=== PATIENT | female | born 1960 | race Caucasian/White ===

== ENCOUNTER 2018-05-05 11:28 | Inpatient (IN) | payer BC, OTHER, SELFPAY ==
[~2018-05-05 11:28] MED LIST: ISOVUE-370 76%-LOCM 1 ML ONE
[2018-05-05 12:11] LABS: #Basophils 0.1 thou/uL (0.0-0.2); #Lymphocytes 1.9 thou/uL (1.20-3.40); #Neutrophils 10.7 thou/uL (1.40-6.50); %Basophils 0.6 % (0.0-1.0); %Eosinophils 0.1 % (0.0-10.0); %Lymphocytes 13.9 % (21.0-51.0); %Monocytes 7.3 % (0.0-10.0); %Neutrophils 78.1 % (42.0-75.0); Hemoglobin 13.1 g/dL (12.0-16.0); Mean Corpuscular HGB CONC 30.4 g/dL (32.0-36.0); Mean Corpuscular Hemoglobin 31.2 pg (27.0-31.0); Mean Platelet Volume 7.7 fL (7.4-10.4); Platelet Count 526 thou/uL (130-400); RBC Distribution Width 17.5 % (11.5-14.5); Red Blood Cell (RBC) Count 4.21 mill/uL (4.20-5.40); White Blood Cell (WBC) Count 13.7 thou/uL (4.8-10.8)
[2018-05-05 12:16] LABS: INR-International Normal Ratio 1.1; Prothrombin Time 13.9 SEC (12.0-14.7)
[2018-05-05 12:36] LABS: ALT (SGPT) Less than 7 U/L (8-55); AST (SGOT) 15 U/L (5-34); Albumin 3.2 g/dL (3.5-5.0); Alkaline Phosphatase 114 U/L (40-150); Anion Gap 10 mmol/L (10-20); BUN (Urea Nitrogen) 11 mg/dL (9.8-20.1); Bilirubin, Total 0.7 mg/dL (0.2-1.2); CK (CPK) 20 U/L (29-168); Calc. Creatinine Clearance 0 mL/min (70-130); Calcium 9.8 mg/dL (7.8-10.44); Carbon Dioxide 34 mmol/L (22-29); Chloride 95 mmol/L (98-107); Estimated GFR-MDRD 85; Globulin 4.2 g/dL (2.4-3.5); Glucose 87 mg/dL (70-105); Potassium 4.3 mmol/L (3.5-5.1); Protein, Total 7.4 g/dL (6.0-8.3); Sodium 135 mmol/L (136-145)
[2018-05-05] MEDS ORDERED: Aspirin Chewable 81 MG TAB ONE (12:47)
[2018-05-05 13:08] LABS: CKMB 1.3 ng/mL (0-6.6)
--- NOTE | 2018-05-05 13:08 | RAD ---
PORTABLE AP CHEST RADIOGRAPH: Date: 05-05-18 History: Dyspnea. Tachycardia. Comparison: 04-28-18 FINDINGS: There is opacification of approximately 2/3 of the left hemithorax related to large left pleural effu john and consolidation which was seen on CT exam on 05-03-18. Findings may be related to compressive a telectasis although pneumonia cannot be entirely excluded. There is blunting in the right lateral cos tophrenic angle suggesting a tiny right pleural effusion. There is atelectasis present at the right l manas base. The cardiac silhouette is mostly obscured and not well evaluated on this exam. The size of the left pleural effusion and parenchymal lung changes has mildly increased since study on 04-28-18. N o other interval change. IMPRESSION: 1. Large left pleural effusion and atelectasis; although, pneumonia cannot be entirely excluded. Ther e has been mild interval increase in the left pleural effusion from prior exam. 2. Small right pleural effusion and atelectasis. POS: [facility]
[2018-05-05] MEDS ORDERED: Cefepime 2 GM in Sodium Chloride 0.9% 100 ML IVPB SCH (13:15)
--- NOTE | 2018-05-05 13:43 | CT ---
CT ANGIO CHEST PERFORMED WITH INTRAVENOUS CONTRAST ENHANCEMENT WITH 3D RECONSTRUCTIONS: HISTORY: Shortness of breath. COMPARISON: A 05/03/2018 examination done at [facility]. FINDINGS: A small right pleural effusion is again identified. A very large left pleural effusion with compress sabina atelectasis of the left lower lobe is again demonstrated. No significant mediastinal or hilar ad enopathy is appreciated. The thoracic aorta is normal in caliber. There is good pulmonary artery opacification without evidence for a pulmonary embolus. Visualized liver parenchyma shows no focal findings. Right adrenal gland is normal. The left adrena l gland is partially visualized and shows no mass. IMPRESSION: 1. Very large left-sided pleural effusion with compressive atelectasis of the left lower lobe. 2. Mild right-sided pleural effusion. 3. No CT evidence for pulmonary embolus. POS: [facility]
[2018-05-05] MEDS ORDERED: Acetaminophen 325 MG TAB PO PRN (14:51)
[2018-05-05] MEDS ORDERED: Ondansetron ODT 4 MG TAB SL PRN (14:51)
[2018-05-05] MEDS ORDERED: Ondansetron PF 4 MG/2 ML Vial IVP PRN (14:51)
[2018-05-05 15:36] LABS: Critical Call Chem Troponin I DECREASED; Troponin I 0.423 ng/mL (< 0.028)
[2018-05-05 15:52] LABS: Body Fluid Source Pleural Fluid
[2018-05-05 15:53] LABS: BF Color Yellow; BF RBC Count - Manual 2050 /cumm; Clarity Hazy (Clear); RBC Background Count 0.006; Tube # EDTA; WBC/NonHematic-Auto 1746 /cumm
[2018-05-05 16:07] LABS: BF Segmented Neutrophils 21 %; Cell Count Non Hematic 31 %; Lymphocytes 48 %
[2018-05-05] MEDS ORDERED: Sodium Chloride 0.9% 1,000 ML IV SCH (16:45)
[2018-05-05] MEDS ORDERED: Ibuprofen 800 MG TAB PO PRN (16:46)
[2018-05-05] MEDS ORDERED: Diabetic Tussin 200 MG/10 ML UDCUP PO PRN (16:46)
[2018-05-05] MEDS ORDERED: Ondansetron ODT 4 MG TAB PO PRN (16:46)
[2018-05-05] MEDS ORDERED: Benzonatate 100 MG CAP PO PRN (16:46)
--- NOTE | 2018-05-05 17:27 | CON ---
DATE OF CONSULTATION: 05/05/2018 REASON FOR CONSULTATION: Shortness of breath and congestive heart failure. HISTORY OF PRESENT ILLNESS: Ms. Flynn is a 58-year-old woman with no previous history of underlying coronary artery disease, who recently presented with shortness of breath. She states this has been occurring over the last several weeks. No real significant chest pain, pressure noted. She states she has been seen and evaluated by Dr. Stevo Sadler. Chest x-ray and CT scan had been performed. She had a large left-sided pleural effusion, was subsequently admitted. From a CV standpoint, her past history is included with tobacco abuse, but with low amounts. No diabetes, hypertension, other associated symptoms. Hypothyroidism. ALLERGIES: NONE. HOME MEDICATIONS: Levothyroxine and iron. REVIEW OF SYSTEMS: Ten-point review of systems is reviewed and as above, otherwise negative. PHYSICAL EXAMINATION: GENERAL: Patient is a pleasant 58-year-old, who is in no acute distress. The patient appears their stated age. VITAL SIGNS: Blood pressure 105/70, pulse 80, respirations 20. NEUROLOGIC: The patient is alert and oriented x3 with no focal neurologic deficits. HEENT: Sclerae without icterus. Mouth has moist mucous membranes with normal pallor. NECK: No JVD. Carotid upstroke brisk. No bruits bilaterally. LUNGS: Decreased breath sounds and crackles noted bilaterally. BACK: No scoliosis or kyphosis. CARDIAC: Regular rate and rhythm with normal S1 and S2. No S3 or S4 noted. No significant rubs, murmurs, thrills, or gallops noted throughout the precordium. PMI is not displaced. There is no parasternal heave. ABDOMEN: Soft, nontender, nondistended. No peritoneal signs present. No hepatosplenomegaly. No abnormal striae. EXTREMITIES: 2+ femoral and 2+ dorsalis pedis pulses. No cyanosis, clubbing, or edema. SKIN: No gross abnormalities. PERTINENT LABORATORY DATA: Hemoglobin 13.1. Potassium 4.3. Peak troponin 0.423. Albumin 3.2. BNP of 2077. Bedside echo shows LVEF of 10% to 15%. LV appears dilated. The mid to distal anterior wall apex and distal inferior wall appear dyskinetic. Vegetation present on the aortic valve (LVOT) with moderate aortic insufficiency present. IMPRESSION: 1. Shortness of breath. 2. Acute systolic heart failure, new finding. 3. Vegetation, old versus new. 4. Tobacco abuse. RECOMMENDATIONS: From a CV standpoint, I would recommend Lasix therapy. Her new CHF is felt to be a new finding. Blood culture have been drawn. Discussed case with Dr. Fortunato Aceves. We will cover with vancomycin for now. Once her blood pressure is stable, would consider low-dose beta-omega therapy. We will also discuss proceeding with coronary angiography once she is stabilized. The patient does admit to having intermittent fevers and chills, but actually septic and her clinical picture is out of proportion for endocarditis, but certainly cannot be ruled out. Unless she has embolized to her coronaries, she likely has 2 separate issues. I will continue to follow with you. Job ID: [id number]
[2018-05-05 19:07] LABS: Critical Call Chem Troponin I DECREASED; Troponin I 0.376 ng/mL (< 0.028)
--- NOTE | 2018-05-05 20:33 | HP ---
PRIMARY CARE PROVIDER: Stevo Sadler MD CHIEF COMPLAINT: Shortness of breath and fatigue. HISTORY OF PRESENT ILLNESS: This is a 58-year-old female, who presents to [facility] Emergency Department complaining of persistent and worsening shortness of breath over the last 3 months. 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 The patient underwent evaluation by her primary care provider with recent chest imaging including CT imaging of the chest showing large left-sided pleural effusion. The patient denies any known chronic lung infections, but does admit to smoking for up to 20 years. The patient denied any recent travel history, family members with similar symptoms, blood in her sputum, weight loss, fatigue, chest pain, or unilateral weakness. The patient states that her primary care provider and business resiliency manager were concerned for worsening symptoms and a large left pleural effusion. Recommending admission to the hospital. In the emergency room, the patient underwent general evaluation and was noted with hypoxemia with O2 saturations in the 70% range on room air. The patient received oxygen supplementation, transitioning to BiPAP noninvasive mechanical ventilation as well as IV cefepime and vancomycin after concern for acute infectious process. The patient also received intravenous normal saline, aspirin 324 mg, and was referred to the Critical Care Unit for evaluation. PAST MEDICAL HISTORY: 1. Tobacco abuse. 2. Hypothyroidism. 3. Left lower extremity DVT, treated with Xarelto x1 year. PAST SURGICAL HISTORY: Status post left hip surgery. CURRENT MEDICATIONS: 1. Levothyroxine 112 mcg p.o. daily. 2. Iron 325 mg p.o. daily. ALLERGIES: NO KNOWN DRUG ALLERGIES. FAMILY HISTORY: No inheritable disease per the patient's report. SOCIAL HISTORY: The patient is , residing in the [place], [place] area. She smokes up to a pack of cigarettes daily. Occasional alcohol use. No illicit drug use. REVIEW OF SYSTEMS: CONSTITUTIONAL: Negative for weight loss or gain, ability to conduct usual activities. SKIN: Negative for rash, itching. EYES: Negative for double vision, pain. ENT/MOUTH: Negative for nose bleeding, neck stiffness, pain, tenderness. CARDIOVASCULAR: Negative for palpitations, dyspnea on exertion, orthopnea. RESPIRATORY: Negative for shortness of breath, wheezing, cough, hemoptysis, fever or night sweats. GASTROINTESTINAL: Negative for poor appetite, abdominal pain, heartburn, nausea, vomiting, constipation, or diarrhea. GENITOURINARY: Negative for urgency, frequency, dysuria, nocturia. MUSCULOSKELETAL: Negative for pain, swelling. NEUROLOGIC/PSYCHIATRIC: Negative for anxiety, depression. ALLERGY/IMMUNOLOGIC: Negative for skin rash, bleeding tendency. Otherwise, negative except as stated per HPI. PHYSICAL EXAMINATION: VITAL SIGNS: Currently; blood pressure 96/72, pulse 92, respiratory rate 20, temperature 98.7 degrees Fahrenheit, and O2 saturation of 97% on 3 L per minute by nasal cannula. GENERAL APPEARANCE: This is a 58-year-old female, alert and oriented x3, pleasant, conversant, in no acute distress. HEENT: Pupils are equal, round, reactive to light and accommodation. Extraocular muscles are intact. No scleral icterus. No conjunctival injection. Nares are patent. OP is clear. Teeth in good repair. NECK: Supple. No cervical adenopathy. No thyromegaly. No carotid bruits. No JVD appreciated. Cervical spine with full active and passive range of motion. No meningeal signs appreciated. CHEST: Diminished breath sounds in the left hemithorax and right basilar region. CARDIOVASCULAR: S1 and S2 without noted murmur, rub, or gallop. ABDOMEN: Rounded, soft, nontender, and nondistended. Bowel sounds are positive in all 4 quadrants. There is no hepatosplenomegaly. No abdominal bruits. No rebound or guarding appreciated. EXTREMITIES: Warm and dry with fair turgor. No clubbing, cyanosis, or asymmetric edema appreciated. Pulses are palpable distally at the dorsalis pedis, posterior tibial, and popliteal arteries bilaterally. Capillary refill is less than 2 seconds. NEUROLOGIC: Cranial nerves 2 through 12 are grossly intact. No focal or lateralizing signs appreciated. PERTINENT LAB AND X-RAY FINDINGS: Sodium 135, potassium 4.3, chloride 95, CO2 of 34, BUN 11, creatinine 0.70, glucose 87, and calcium 9.8. LFTs within normal limits. Total CK of 20. Troponin-I ranged between 0.423 to 0.45. BNP 2078. Albumin 3.2. CBC showed a white blood cell count of 13.7, hemoglobin 13, hematocrit 43, MCV 103, and platelet count 526 with 78% neutrophils. PT 13.9, INR 1.1, and PTT 35.0. Portable chest x-ray dated 05/05/2018, showed large left pleural effusion with associated atelectasis. Small right pleural effusion noted. CT angiogram of the chest dated 05/05/2018, showed no evidence for pulmonary embolus. Large left-sided pleural effusion with atelectasis of the left lower lobe. Mild right-sided pleural effusion. EKG dated 05/05/2018, by my interpretation shows sinus tachycardia with low-voltage tracing. Heart rates in the 130s. Large R-wave deflection noted in leads V2 and V3 with attenuation in leads V4 through V6. Normal axis. No acute ST-T wave changes noted. ASSESSMENT AND PLAN: 1. Acute hypoxic respiratory failure, suspect secondary to large left-sided pleural effusion of unclear etiology. Initially managed with oxygen supplementation including BiPAP noninvasive mechanical ventilation, now transitioned to oxygen by nasal cannula. We will continue general pulmonary supportive management. See #2 below. 2. Left pleural effusion with atelectasis. The patient will be monitored by the Pulmonology Service. Status post thoracentesis with 750 mL removed. Final pathology and evaluation pending on the pleuritic fluid. Questionable cardiac etiology versus infectious versus neoplastic. Start Lasix 20 mg IV b.i.d. 3. Pneumonia, bacterial, suspected. We will continue cefepime 2 g IV q.12 hours with additional vancomycin 1 g IV b.i.d. Continue oxygen supplementation and general supportive management. 4. Elevated troponin-I, suspect demand ischemia in the context of large left pleural effusion and sinus tachycardia at the time of presentation. 2D transthoracic echocardiogram performed and pending. Cardiology consultation for further evaluation. Continue aspirin 81 mg daily. 5. Congestive heart failure. Question of cardiac etiology for the patient's large left pleural effusion. 2D transthoracic echocardiogram performed with final results pending. Continue Lasix 20 mg IV b.i.d. 6. Tobacco abuse. We will offer smoking cessation resources prior to discharge. 7. Prophylaxis. SCDs while in bed. Pepcid 20 mg p.o. b.i.d. 8. Code status is full. Surrogate medical decision maker is the patient's spouse. Job ID: [id number]
--- NOTE | 2018-05-05 20:39 | PRG ---
DATE OF SERVICE: 05/05/2018 Ms. Flynn is evaluated an hour after thoracentesis. She is doing much better. She wanted to sleep on BiPAP she thought tonight, so I have recommended that. Echocardiogram showed an ejection fraction close to 15%. She has an aortic vegetation, but it is unclear whether this is old or new. Cultures are pending and were drawn in the emergency room. I called the lab to confirm this. Obviously, endocarditis is though rule out diagnosis at this moment. Critical care time is 35 minutes independent of the procedures performed. Job ID: [id number] MTDD
[2018-05-05] MEDS: Famotidine 20 MG TAB PO SCH (21:07)
--- NOTE | 2018-05-05 21:10 | PRG ---
DATE OF SERVICE: 05/05/2018 SUBJECTIVE: Ms. Flynn is a pleasant 58-year-old female, who was referred to our office and referred to the emergency department because of fairly extreme dyspnea in the office. I was consulted because of this. PAST MEDICAL HISTORY: Remarkable for hypothyroidism, on thyroid replacement. She has no heart history. She was referred to our office because of a large left effusion. SOCIAL HISTORY: She has been a smoker, but not a heavy smoker. She is not a daily drinker. She did not use drugs. ALLERGIES: SHE HAS NO DRUG ALLERGIES. FAMILY HISTORY: Non contributory. MEDICATIONS: Prior to admission, she is on Synthroid. REVIEW OF SYSTEMS: 10 point review of systems completed, otherwise unremarkable. PHYSICAL EXAMINATION: GENERAL: Ms. Flynn is a pleasant 58-year-old female VITAL SIGNS: She is afebrile. Heart rates 94, oximetry was 90% on a BiPAP when I saw her. She was tachypneic with a rate in the 30s. HEAD: Unremarkable. HEENT: Pupils react. NECK: Unremarkable. She had no cervical lymphadenopathy. She had absent breath sounds residential up on the left. HEART: Regular rhythm. S1 and S2 normal. ABDOMEN: Soft and nontender. EXTREMITIES: Without clubbing, cyanosis, or edema. DIAGNOSTIC DATA: Impression, massive left-sided effusion with interstitial edema on chest radiograph. LABORATORY DATA: Labs remarkable for white count 13.7, hemoglobin 13, MCV of 103, platelets 526. Electrolytes; sodium 135, potassium 4.3, chloride 95, bicarb 34 , BUN 11, and creatinine 0.7. B-natriuretic peptide is 2077. IMPRESSION: Cardiogenic pulmonary edema. Recommended thoracentesis for symptomatic relief. She understand the risks of bleeding, infection, lung collapse, and signed the consent forms. We will make further recommendations after fluid results are back. Critical care time is 35 minutes, independent of procedures performed. Job ID: [id number] MTDD
[2018-05-06] MEDS: Vancomycin HCl 1 GM in Premix Bag 1 BAG IVPB SCH ×2 (00:56→13:01)
[2018-05-06] MEDS: Cefepime 2 GM in Sodium Chloride 0.9% 100 ML IVPB SCH ×2 (01:58→14:10)
--- NOTE | 2018-05-06 03:08 | OP ---
DATE OF PROCEDURE: 05/05/2018 PROCEDURE PERFORMED: Thoracentesis. DESCRIPTION OF PROCEDURE: Left posterior hemithorax was cleansed after consent was obtained. Chlorhexidine was used. She had absent breath sounds at lower half of her left chest. 10 mL of 1% lidocaine was used to anesthetize the skin and the pleura. An 8-[place] catheter was inserted in the pleural space without difficulty. 750 mL of dark yellow pleural fluid was evacuated from the pleural space without difficulty. No air was aspirated. The catheter was withdrawn. Sterile dressing was applied. She tolerated the procedure well. Fluid was sent for the appropriate studies. Preliminary studies showed white count of 1746, red count 2050, and 21% neutrophils. Protein was 3 g, LDH was 202, glucose 98, amylase 106. For some reason, the pleural fluid pH that was ordered and has not been reported. Job ID: [id number]
[2018-05-06 06:03] LABS: Hypochromia SLIGHT = 6-15 cells (100X) (0-5/hpf); Lymphocytes 14 % (21-51); MDiff Complete? YES; Macrocytosis SLIGHT = 6-15 cells (100X) (0-5/hpf); Mean Corpuscular HGB CONC 30.2 g/dL (32.0-36.0); Mean Corpuscular Hemoglobin 31.2 pg (27.0-31.0); Mean Platelet Volume 7.6 fL (7.4-10.4); Monocytes 3 % (0-10); Neutrophil 83 % (42-75); Platelet Count 445 thou/uL (130-400); Platelet Morphology Comment Appears Adequate; RBC Distribution Width 17.4 % (11.5-14.5); Red Blood Cell (RBC) Count 3.54 mill/uL (4.20-5.40); White Blood Cell (WBC) Count 11.7 thou/uL (4.8-10.8)
[2018-05-06 06:26] LABS: Anion Gap 15 mmol/L (10-20); BUN (Urea Nitrogen) 9 mg/dL (9.8-20.1); Calc. Creatinine Clearance 138 mL/min (70-130); Calcium 8.8 mg/dL (7.8-10.44); Carbon Dioxide 25 mmol/L (22-29); Chloride 101 mmol/L (98-107); Estimated GFR-MDRD Greater than 90; Glucose 79 mg/dL (70-105); Magnesium 1.3 mg/dL (1.6-2.6); Potassium 4.6 mmol/L (3.5-5.1); Sodium 136 mmol/L (136-145)
[2018-05-06] MEDS ORDERED: Magnesium Sulfate 4 GM in Sodium Chloride 0.9% 250 ML 250 ML IVPB SCH (09:30)
[2018-05-06] MEDS: Aspirin 81 mg Enteric Coated Tablet PO SCH (10:00)
[2018-05-06] MEDS: Famotidine 20 MG TAB PO SCH ×2 (10:00→20:31)
[2018-05-06] MEDS: Enoxaparin Sodium 40 MG/0.4 ML SYRINGE SC SCH (10:00)
[2018-05-06] MEDS ORDERED: Furosemide 20 MG/2 ML VIAL SLOW IVP SCH (12:00)
--- NOTE | 2018-05-06 12:37 | PRG ---
DATE OF SERVICE: 05/06/2018 SERVICE: Pulmonary Medicine. INTERVAL HISTORY: We discovered a lot in a very short period of time. Very clearly, the patient is having a heart failure event. It appears to be subacute. She also had a vegetation on the valve. All of these things are being explored. The patient indicates that she is breathing a little bit better. She did like using the BiPAP last night. She can only tolerate for about 2 to 3 hours before it started feeling uncomfortable for her and she had to take a break from it. Ultimately, removing in the right direction. More so, she is relieved to find out that we are getting some answers for why she has been feeling so bad for the last 3 months. PHYSICAL EXAMINATION: VITAL SIGNS: Afebrile. Pulse 121, blood pressure 100/78, respirations 19, saturation 97% on 3 L nasal cannula. GENERAL: The patient is awake and alert, in no apparent distress. LUNGS: Decent air entry. Dependent crackles are minimal. No prolonged expiratory phase or wheezing is appreciated. HEART: Normal rate, regular. ABDOMEN: Soft, nontender, nondistended. Bowel sounds are positive. MUSCULOSKELETAL: No cyanosis or clubbing. There is trace pitting in the bilateral lower extremities. NEUROLOGIC: Grossly nonfocal. LABORATORY DATA: WBC 11.7, hemoglobin 11.0, platelets 445,000. Neutrophil count is 83%. INR 1.1. Basic metabolic profile is otherwise unremarkable with creatinine is downtrending to 0.56. Magnesium 1.3, LDH 378. TSH 4.07. Body fluid is significant for a pleural LDH of 202, total protein 3.0. PH was 8.1, likely an artifact of a late analysis. Blood cultures x2, and body fluid cultures otherwise unremarkable. IMAGING DATA: Echocardiogram demonstrates 10% to 15% ejection fraction, distal inferior wall akinesis. Left atrium is moderately dilated with severe mitral regurgitation present. There is a vegetation on the left ventricular outflow tract of the aortic valve measuring 2.5 mm. There was [id number] aortic regurgitation noted. ASSESSMENT: 1. Acute systolic and valvular heart failure. 2. Mitral and aortic regurgitation. 3. Pleural effusion, status post thoracentesis, demonstrating a pseudo-exudate. 4. [id number] myocardial infarction. DISCUSSION AND PLAN: I will introduce 1 small dose of Lasix today. If she tolerates it, we will gently diurese her through time. I agree with Infectious Disease consultation. We will need to evaluate for typical, and culture negative forms of endocarditis. We will need to define her coronaries. If we can prove that she is not infected, the patient may require a valve replacement at some point in the future. At this point, she is stable enough to transition to the IMCU, but since she is going to require BiPAP at night, we will leave her more closely monitored and I am not ready to send her to the telemetry unit yet. Pulmonary/Critical Care will continue to follow along. Job ID: [id number]
--- NOTE | 2018-05-06 16:29 | CON ---
DATE OF CONSULTATION: 05/06/2018 REASON FOR CONSULTATION: Endocarditis. HISTORY OF PRESENT ILLNESS: A 58-year-old first admission to [facility], who has a history of chronic smoking, prior DVT treated for 1 year with Xarelto , who has been unwell for the past 3 months with dyspnea, intermittent low-grade fevers, and general malaise. She had initial chest x-ray, which showed effusion on the left side, which was confirmed by a CT scan done elsewhere. She was, therefore, recommended eventually to be admitted after multiple courses of oral antimicrobial therapy in the outpatient setting. O2 saturations were 70% on admission. She was eventually transitioned to BiPAP and admitted to the ICU with cefepime and vancomycin. Now, we have a positive finding in the echocardiogram suggestive of aortic valve endocarditis with significant aortic valve insufficiency. She is currently feeling better. She denies any headaches. No visual symptoms. Except for floaters here and there, the vision is sharp, though. No back pain. No neck pain. No sputum production. No abdominal pain or diarrhea. She is urinating in the bedside commode. She had a thoracentesis for diagnostic purpose. PAST MEDICAL HISTORY: Includes chronic smoking, hypothyroidism, and deep vein thrombosis. PAST SURGICAL HISTORY: Hip surgery. This was in 1992, the hip surgery, not clear what the nature of the surgery was. She also has hypothyroidism. SOCIAL HISTORY: Drinks occasionally. She smokes daily. ALLERGY HISTORY: Negative. CURRENT MEDICATIONS: 1. Ecotrin. 2. Cefepime. 3. Enoxaparin. 4. Pepcid. 5. Robitussin. 6. Motrin. 7. Zofran. 8. Vancomycin. PHYSICAL EXAMINATION: VITAL SIGNS: T-max 98.4, blood pressure 97/77, pulse 113, and O2 sats 99%. SKIN: Shows a peripheral IV access. She has no Bates catheter. HEENT: No lymphadenopathy. Ocular movements conjugate. Sclerae white. Pupils are equal. Conjunctivae normal. Oral cavity normal. Numerous teeth in place in fairly decent shape. NECK: Supple. No jugular venous distention. LUNGS: Bibasilar expiratory crackles. No wheezing. HEART: S1 and S2 with aortic insufficiency murmur right to these sternal border. This is quite faint. She has a systolic murmur as well, best heard at the base of the heart. No apex murmur noted. No S3. She does have an S4. ABDOMEN: Soft. Not distended or tender. No ascites. No bladder distention. No organomegaly. No joint inflammatory activity. EXTREMITIES: Trace edema, lower extremities. Pulses 1+ in dorsalis pedis. Moves extremities equally. No focal neurological findings. Cognitive function appears to be intact. LABORATORY DATA: White cell count 13.7 and now 11.7, platelets 526 and 445, 82% neutrophils, 14% lymphocytes. INR 1.1. Creatinine 0.7. Liver profile normal. Albumin 3.2, globulin 4.2. Lactate dehydrogenase 378. Pleural fluid with 1700 wbc's with 21% neutrophils, 48% lymphocytes. The path review lymphocytes and reactive mesothelial cells, but no malignancy. LDH was 202, total protein was 3.0, and the albumin was 3.2. The patient had a chest CT, which showed large left- sided pleural effusion with compressive atelectasis left lower lobe and mild right- sided pleural effusion with no CT evidence of pulmonary embolism. The fluid pH was 8.1 in the pleural fluid. ASSESSMENT: 1. Chronic smoking. 2. Large pleural effusion, status post thoracentesis, appears to be an exudative pleural effusion. 3. Vegetation in the aortic valve with aortic valve insufficiency. DISCUSSION: The patient has pending blood cultures and we will await for the results of those to see if she has definitive endocarditis diagnosis or possible diagnosis according to modified Doty criteria. If the blood cultures remain negative, then we will consider submitting Karius testing. In the meantime, continue cefepime and vancomycin. Usual bacterial causes of endocarditis including streptococci from oral cavity, Staphylococcus aureus, HACEK bacteria, Bartonella will be considered, fungal less likely. Depending on clinical course, the patient might need consultation with Thoracic Surgery for valve replacement. Job ID: [id number] [facility]
--- NOTE | 2018-05-06 19:27 | PRG ---
DATE OF SERVICE: 05/06/2018 SUBJECTIVE: Ms. Flynn is doing better from a respiratory standpoint. She is diuresed. She is off BiPAP. No current complaints. She states she is resting and breathing better. OBJECTIVE: VITAL SIGNS: Blood pressure 113/82, pulse 100 to 120, temperature afebrile. LUNGS: Crackles. Decreased breath sounds noted bilaterally. HEART: Regular rate and rhythm. Tachycardic. ABDOMEN: Soft, nontender, nondistended. EXTREMITIES: No edema. PERTINENT LABORATORY DATA: Hemoglobin 11. Creatinine 0.84. Peak troponin 0.4. IMPRESSION: 1. Acute systolic heart failure. 2. Endocarditis. 3. Tobacco abuse. 4. Chronic obstructive pulmonary disease. 5. Pleural effusion. RECOMMENDATIONS: I discussed with Ms. Flynn on proceeding with coronary angiography. I discussed the procedure in full detail with Ms. Flynn. The risks included but not limited to the following: , stroke, AR, need for emergency surgery, loss of limb, bleeding, and infection, as well as a reaction to the dye causing kidney failure and needing long-term dialysis. I also discussed the risks of PCI to include all of the above including coronary dissection and perforation in addition to acute stent thrombosis and restenosis. All questions answered. Given the above, the patient agreed to proceed with the above procedure. We will check in a.m. If blood pressure and heart rate are more stable, we will proceed in a.m., otherwise may need to wait until Thursday until things get stabilize. I would also like to await for final blood culture results. Job ID: [id number]
--- NOTE | 2018-05-06 21:43 | PDOC.PN ---
- Subjective Encounter Start Date: 05/06/18 Encounter Start Time: 09:15 Subjective: pt up in bed no complains - Objective Vital Signs & Weight: Vital Signs (12 hours) Temp 05/06/18 19:34 98.3 F 05/06/18 15:14 97.4 F L 05/06/18 14:00 98.5 F 05/06/18 13:00 97.5 F L 05/06/18 12:00 98.3 F 05/06/18 11:00 97.7 F 05/06/18 10:00 98.2 F Weight Weight 180 lb 12.465 oz Most Recent Monitor Data Heart Rate from ECG 104 NIBP 103/65 NIBP BP-Mean 77 Respiration from ECG 27 SpO2 95 I&O: 05/05/18 05/06/18 05/07/18 06:59 06:59 06:59 Intake Total 657 321 Output Total 1350 450 Balance -693 -129 Result Diagrams: 05/06/18 05:24 05/06/18 05:24 Phys Exam - Physical Examination Neck: no nodes, no JVD, supple, full ROM mild crackles to bases Cardiovascular: RRR, no significant murmur, no rub, gallop, irregular Musculoskeletal: no edema, pulses present, edema present Dx/Plan (1) Acute hypoxemic respiratory failure Code(s): J96.01 - ACUTE RESPIRATORY FAILURE WITH HYPOXIA Status: Acute (2) Pleural effusion Code(s): J90 - PLEURAL EFFUSION, NOT ELSEWHERE CLASSIFIED Status: Acute (3) Pleural effusion Code(s): J90 - PLEURAL EFFUSION, NOT ELSEWHERE CLASSIFIED Status: Acute (4) Endocarditis Code(s): I38 - ENDOCARDITIS, VALVE UNSPECIFIED Status: Acute (5) Sinus tachycardia Code(s): R00.0 - TACHYCARDIA, UNSPECIFIED Status: Acute (6) Systolic heart failure Code(s): I50.20 - UNSPECIFIED SYSTOLIC (CONGESTIVE) HEART FAILURE Status: Acute - Plan will continue abx for now -: ID consulted for endocarditis per echo finding -: s/p throacentesis, cytology pending, blood cx pending. * . Review of Systems - Review of Systems Cardiovascular: negative: chest pain, palpitations, orthopnea, paroxysmal nocturnal dyspnea, edema, light headedness, other Gastrointestinal: negative: Nausea, Vomiting, Abdominal Pain, Diarrhea, Constipation, Melena, Hematochezia, Other Genitourinary: negative: Dysuria, Frequency, Incontinence, Hematuria, Retention , Other - Medications/Allergies Allergies/Adverse Reactions: Allergies Allergy/AdvReac Type Severity Reaction Status Date / Time No Known Allergies Allergy Unverified 05/05/18 12:59 Medications: Current Medications Acetaminophen (Tylenol) 1,000 mg PO Q6H PRN PRN Reason: Mild Pain (1-3) Aspirin (Ecotrin) 81 mg PO DAILY [facility] Last Admin: 05/06/18 10:00 Dose: 81 mg Enoxaparin Sodium (Lovenox) 40 mg SC 0900 [facility] Last Admin: 05/06/18 10:00 Dose: 40 mg Famotidine (Pepcid) 20 mg PO BID [facility] Last Admin: 05/06/18 20:31 Dose: 20 mg Guaifenesin (Robitussin Sf) 200 mg PO Q4H PRN PRN Reason: Cough Vancomycin HCl 1 gm/ Device 200 mls @ 200 mls/hr IVPB 0100,1300 [facility] Last Admin: 05/06/18 13:01 Dose: 200 mls Sodium Chloride (Normal Saline 0.9%) 1,000 mls @ 0 mls/hr IV .Q0M [facility] Cefepime HCl 2 gm/ Sodium (Chloride) 100 mls @ 200 mls/hr IVPB 0200,1400 [facility] Last Admin: 05/06/18 14:10 Dose: 100 mls Ibuprofen (Motrin) 400 mg PO Q4H PRN PRN Reason: Fever > 101 Ondansetron HCl (Zofran Odt) 4 mg PO Q6H PRN PRN Reason: Nausea/Vomiting Ondansetron HCl (Zofran) 4 mg IVP Q6H PRN PRN Reason: Nausea/Vomiting
[2018-05-07 01:02] LABS: Vancomycin, Trough 14.7 ug/mL
[2018-05-07] MEDS: Vancomycin HCl 1 GM in Premix Bag 1 BAG IVPB SCH ×2 (01:36→13:32)
[2018-05-07] MEDS: Cefepime 2 GM in Sodium Chloride 0.9% 100 ML IVPB SCH ×2 (01:46→13:32)
[2018-05-07] MEDS ORDERED: Fentanyl 100 MCG/2 ML VIAL ONE (06:51)
[2018-05-07] MEDS ORDERED: Midazolam HCl 2 mg/2 ml Vial ONE (06:51)
[2018-05-07] MEDS: Famotidine 20 MG TAB PO SCH ×2 (09:12→20:54)
[2018-05-07] MEDS: Aspirin 81 mg Enteric Coated Tablet PO SCH (09:12)
[2018-05-07] MEDS: Enoxaparin Sodium 40 MG/0.4 ML SYRINGE SC SCH (09:12)
--- NOTE | 2018-05-07 12:28 | PDOC.PN ---
- Subjective Encounter Start Date: 05/07/18 Encounter Start Time: 10:15 -: old records requested/rev Patient seen and examined. No new complaints. No overnight events - Objective MAR Reviewed: Yes Vital Signs & Weight: Vital Signs (12 hours) Temp Pulse Resp Pulse Ox 05/07/18 11:10 98.3 F 05/07/18 07:34 97 05/07/18 07:33 103 H 17 96 05/07/18 07:08 98.6 F 05/07/18 04:09 98.6 F 05/07/18 00:27 30 H 98 Weight Weight 180 lb 12.465 oz Most Recent Monitor Data Heart Rate from ECG 111 NIBP 103/63 NIBP BP-Mean 76 Respiration from ECG 20 SpO2 97 I&O: 05/06/18 05/07/18 05/08/18 06:59 06:59 06:59 Intake Total 657 1221 Output Total 1350 550 Balance -693 671 Result Diagrams: 05/06/18 05:24 05/06/18 05:24 EKG Reviewed by me: Yes (tachycardia) Phys Exam - Physical Examination Constitutional: NAD HEENT: PERRLA, moist MMs, sclera anicteric Neck: no JVD, supple Respiratory: no wheezing, no rhonchi basal rales Cardiovascular: RRR, no rub SM at apex Gastrointestinal: soft, non-tender, no distention, positive bowel sounds Musculoskeletal: no edema, pulses present Neurological: non-focal, normal sensation Lymphatic: no nodes Psychiatric: normal affect, A&O x 3 Skin: no rash, normal turgor Dx/Plan (1) Acute hypoxemic respiratory failure Code(s): J96.01 - ACUTE RESPIRATORY FAILURE WITH HYPOXIA Status: Acute (2) Acute systolic ACC/AHA stage C congestive heart failure Code(s): I50.21 - ACUTE SYSTOLIC (CONGESTIVE) HEART FAILURE Status: Acute (3) Aortic valve vegetation Code(s): I33.0 - ACUTE AND SUBACUTE INFECTIVE ENDOCARDITIS Status: Acute (4) Demand ischemia of myocardium Code(s): I24.8 - OTHER FORMS OF ACUTE ISCHEMIC HEART DISEASE Status: Acute (5) Endocarditis Code(s): I38 - ENDOCARDITIS, VALVE UNSPECIFIED Status: Acute (6) Pleural effusion, left Code(s): J90 - PLEURAL EFFUSION, NOT ELSEWHERE CLASSIFIED Status: Acute (7) Severe mitral regurgitation Code(s): I34.0 - NONRHEUMATIC MITRAL (VALVE) INSUFFICIENCY Status: Acute (8) Macrocytic anemia Code(s): D53.9 - NUTRITIONAL ANEMIA, UNSPECIFIED Status: Chronic (9) Obesity (BMI 30-39.9) Code(s): E66.9 - OBESITY, UNSPECIFIED Status: Chronic (10) Tobacco abuse Code(s): Z72.0 - TOBACCO USE Status: Chronic - Plan cont current plan of care, continue antibiotics * continue empiric antibiotics as per dr serna * medication reviewed as below * symptomatic treatment * follow culture * continue diuresis * monitor in imcu * cardio, pulmonary, ID on case. Review of Systems - Review of Systems ENT: negative: Ear Pain, Ear Discharge, Nose Pain, Nose Discharge, Nose Congestion, Mouth Pain, Mouth Swelling, Throat Pain, Throat Swelling, Other Respiratory: Shortness of Breath, SOB with Excertion. negative: Cough, Dry, Hemoptysis, Pleuritic Pain, Sputum, Wheezing Cardiovascular: palpitations, orthopnea. negative: chest pain, paroxysmal nocturnal dyspnea, edema, light headedness, other Gastrointestinal: negative: Nausea, Vomiting, Abdominal Pain, Diarrhea, Constipation, Melena, Hematochezia, Other Genitourinary: negative: Dysuria, Frequency, Incontinence, Hematuria, Retention , Other Musculoskeletal: negative: Neck Pain, Shoulder Pain, Arm Pain, Back Pain, Hand Pain, Leg Pain, Foot Pain, Other - Medications/Allergies Allergies/Adverse Reactions: Allergies Allergy/AdvReac Type Severity Reaction Status Date / Time No Known Allergies Allergy Unverified 05/05/18 12:59 Medications: Current Medications Acetaminophen (Tylenol) 1,000 mg PO Q6H PRN PRN Reason: Mild Pain (1-3) Aspirin (Ecotrin) 81 mg PO DAILY [facility] Last Admin: 05/07/18 09:12 Dose: 81 mg Enoxaparin Sodium (Lovenox) 40 mg SC 0900 [facility] Last Admin: 05/07/18 09:12 Dose: 40 mg Famotidine (Pepcid) 20 mg PO BID [facility] Last Admin: 05/07/18 09:12 Dose: 20 mg Guaifenesin (Robitussin Sf) 200 mg PO Q4H PRN PRN Reason: Cough Vancomycin HCl 1 gm/ Device 200 mls @ 200 mls/hr IVPB 0100,1300 [facility] Last Admin: 05/07/18 01:36 Dose: 200 mls Sodium Chloride (Normal Saline 0.9%) 1,000 mls @ 0 mls/hr IV .Q0M [facility] Cefepime HCl 2 gm/ Sodium (Chloride) 100 mls @ 200 mls/hr IVPB 0200,1400 [facility] Last Admin: 05/07/18 01:46 Dose: 100 mls Ibuprofen (Motrin) 400 mg PO Q4H PRN PRN Reason: Fever > 101 Miscellaneous Medication (Pharmacy To Dose) 1 each IVPB ONE PRN PRN Reason: DOSING Stop: 06/06/18 02:26 Ondansetron HCl (Zofran Odt) 4 mg PO Q6H PRN PRN Reason: Nausea/Vomiting Ondansetron HCl (Zofran) 4 mg IVP Q6H PRN PRN Reason: Nausea/Vomiting
[2018-05-07] MEDS ORDERED: Furosemide 20 MG/2 ML VIAL SLOW IVP SCH (14:45)
--- NOTE | 2018-05-07 14:54 | PRG ---
DATE OF SERVICE: 05/07/2018 SUBJECTIVE: Ms. Flynn has remained on BiPAP overnight. Upon my evaluation, continue with BiPAP. Her blood pressure has been in the one teens. Blood culture so far has been negative. OBJECTIVE: VITAL SIGNS: Blood pressure 113/77, pulse 90s to 120s. LUNGS: Decreased breath sounds on the left versus right. HEART: Regular rate and rhythm. ABDOMEN: Soft, nontender, nondistended. EXTREMITIES: No edema. PERTINENT LABORATORY DATA: Hemoglobin 11, creatinine 0.56. Peak troponin 0.423. IMPRESSION: 1. Cardiomyopathy of unknown etiology, likely ischemic. 2. Endocarditis. 3. Chronic obstructive pulmonary disease with previous tobacco abuse. RECOMMENDATIONS: Ms. Flynn remains on BiPAP for pulmonary support. We would recommend low-dose Lasix for 20 mg IV x1 and reassess. Her blood pressure is marginal and has now been a little better over the last 12-24 hours. We will also add low-dose Coreg at 3.125 mg p.o. b.i.d. Await final recommendations by ID. She does appear to have moderate aortic insufficiency. Once she is more stable, we will consider coronary angiography in addition to a MCKENZIE to further assess the aortic valve. Job ID: [id number]
--- NOTE | 2018-05-07 15:01 | PRG ---
DATE OF SERVICE: SERVICE: Pulmonary Medicine. INTERVAL HISTORY: The patient has a little better color today. She cannot provide any additional elements of the history. She is breathing comfortably. She has been on off BiPAP all day. Otherwise, there has been no interval change to her condition. We gave her a dose of Lasix yesterday, which she tolerated fairly well. PHYSICAL EXAMINATION: VITAL SIGNS: Afebrile, pulse 123, blood pressure 113/77, respirations 24, saturation 93% on 3 L nasal cannula. GENERAL: The patient is awake and alert, in no apparent distress. LUNGS: Decent air entry. There is no prolonged expiratory phase. Dependent crackles are noted. No rhonchi. HEART: Normal rate, regular. ABDOMEN: Soft, nontender, nondistended. Bowel sounds are positive. MUSCULOSKELETAL: No cyanosis or clubbing. There is no pitting in the bilateral lower extremities. NEUROLOGIC: Grossly nonfocal. LABORATORY DATA: Blood cultures x2 and body fluid cultures negative to date. Cytology demonstrates no malignant cells on the pleural fluid. There is some reactive mesothelial cells and lymphocytes noted. ASSESSMENT: 1. Acute systolic and valvular heart failure. 2. Mitral and aortic regurgitation. 3. Pleural effusion, status post thoracentesis demonstrating pseudo exudate. 4. [id number] myocardial infarction. DISCUSSION AND PLAN: Agree with cardiac catheterization. She will remain in the IMCU for the time being. We will continue to diurese her through time if she can tolerate it. I would like for her to remain in the IMCU so long as she is requiring intermittent use of BiPAP. Pulmonary/Critical Care will continue to follow along. Job ID: [id number]
[2018-05-07] MEDS: Carvedilol 3.125 MG TAB PO SCH (18:19)
[2018-05-08] MEDS: Cefepime 2 GM in Sodium Chloride 0.9% 100 ML IVPB SCH ×2 (00:49→14:08)
[2018-05-08] MEDS: Vancomycin HCl 1 GM in Premix Bag 1 BAG IVPB SCH ×2 (00:49→14:08)
[2018-05-08] MEDS: Enoxaparin Sodium 40 MG/0.4 ML SYRINGE SC SCH (08:38)
[2018-05-08] MEDS: Famotidine 20 MG TAB PO SCH ×2 (08:38→20:44)
[2018-05-08] MEDS: Aspirin 81 mg Enteric Coated Tablet PO SCH (08:38)
[2018-05-08] MEDS: Carvedilol 3.125 MG TAB PO SCH ×2 (08:39→17:37)
--- NOTE | 2018-05-08 10:00 | PDOC.PN ---
- Subjective Encounter Start Date: 05/08/18 Encounter Start Time: 09:00 pt is tachypneic, she has tachycardia, has very low effort tolerance, still requires bipap - Objective MAR Reviewed: Yes Vital Signs & Weight: Vital Signs (12 hours) Temp Pulse Resp Pulse Ox 05/08/18 07:49 95 05/08/18 07:29 97.9 F 05/08/18 03:32 97.6 F 05/08/18 02:21 93 23 H 97 05/07/18 23:55 98.2 F Weight Weight 181 lb Most Recent Monitor Data Heart Rate from ECG 126 NIBP 119/73 NIBP BP-Mean 88 Respiration from ECG 29 SpO2 94 I&O: 05/07/18 05/08/18 05/09/18 06:59 06:59 06:59 Intake Total 1221 600 Output Total 550 1050 Balance 671 -450 Result Diagrams: 05/06/18 05:24 05/06/18 05:24 EKG Reviewed by me: Yes (sinus tachycardia) Phys Exam - Physical Examination Constitutional: NAD HEENT: PERRLA, moist MMs, sclera anicteric Neck: no JVD, supple Respiratory: no wheezing, no rhonchi few basal rales Cardiovascular: RRR, no rub tachycardia, SM+ Gastrointestinal: soft, non-tender, no distention, positive bowel sounds Musculoskeletal: no edema, pulses present Neurological: non-focal, normal sensation Lymphatic: no nodes Psychiatric: normal affect Skin: no rash, normal turgor Dx/Plan (1) Acute hypoxemic respiratory failure Code(s): J96.01 - ACUTE RESPIRATORY FAILURE WITH HYPOXIA Status: Acute (2) Acute systolic ACC/AHA stage C congestive heart failure Code(s): I50.21 - ACUTE SYSTOLIC (CONGESTIVE) HEART FAILURE Status: Acute (3) Aortic valve vegetation Code(s): I33.0 - ACUTE AND SUBACUTE INFECTIVE ENDOCARDITIS Status: Acute (4) Demand ischemia of myocardium Code(s): I24.8 - OTHER FORMS OF ACUTE ISCHEMIC HEART DISEASE Status: Acute (5) Endocarditis Code(s): I38 - ENDOCARDITIS, VALVE UNSPECIFIED Status: Acute (6) Pleural effusion, left Code(s): J90 - PLEURAL EFFUSION, NOT ELSEWHERE CLASSIFIED Status: Acute (7) Severe mitral regurgitation Code(s): I34.0 - NONRHEUMATIC MITRAL (VALVE) INSUFFICIENCY Status: Acute (8) Macrocytic anemia Code(s): D53.9 - NUTRITIONAL ANEMIA, UNSPECIFIED Status: Chronic (9) Obesity (BMI 30-39.9) Code(s): E66.9 - OBESITY, UNSPECIFIED Status: Chronic (10) Tobacco abuse Code(s): Z72.0 - TOBACCO USE Status: Chronic - Plan cont current plan of care, continue antibiotics * so far culture negative * continue empiric antibiotic as per ID * cardio, pulmonary following * will keep in IMCU * she may need cardiac cath * medication reviewed as below * symptomatic treatment. Review of Systems - Review of Systems Constitutional: weakness. negative: fever, chills, sweats, malaise, other ENT: negative: Ear Pain, Ear Discharge, Nose Pain, Nose Discharge, Nose Congestion, Mouth Pain, Mouth Swelling, Throat Pain, Throat Swelling, Other Respiratory: Shortness of Breath, SOB with Excertion. negative: Cough, Dry, Hemoptysis, Pleuritic Pain, Sputum, Wheezing Cardiovascular: orthopnea. negative: chest pain, palpitations, paroxysmal nocturnal dyspnea, edema, light headedness, other Gastrointestinal: negative: Nausea, Vomiting, Abdominal Pain, Diarrhea, Constipation, Melena, Hematochezia, Other Genitourinary: negative: Dysuria, Frequency, Incontinence, Hematuria, Retention , Other Musculoskeletal: negative: Neck Pain, Shoulder Pain, Arm Pain, Back Pain, Hand Pain, Leg Pain, Foot Pain, Other Skin: negative: Rash, Lesions, Boaz, Bruising, Other - Medications/Allergies Allergies/Adverse Reactions: Allergies Allergy/AdvReac Type Severity Reaction Status Date / Time No Known Allergies Allergy Unverified 05/05/18 12:59 Medications: Current Medications Acetaminophen (Tylenol) 1,000 mg PO Q6H PRN PRN Reason: Mild Pain (1-3) Aspirin (Ecotrin) 81 mg PO DAILY [facility] Last Admin: 05/08/18 08:38 Dose: 81 mg Carvedilol (Coreg) 3.125 mg PO BID[facility] Last Admin: 05/08/18 08:39 Dose: 3.125 mg Enoxaparin Sodium (Lovenox) 40 mg SC 0900 [facility] Last Admin: 05/08/18 08:38 Dose: 40 mg Famotidine (Pepcid) 20 mg PO BID [facility] Last Admin: 05/08/18 08:38 Dose: 20 mg Guaifenesin (Robitussin Sf) 200 mg PO Q4H PRN PRN Reason: Cough Vancomycin HCl 1 gm/ Device 200 mls @ 200 mls/hr IVPB 0100,1300 [facility] Last Admin: 05/08/18 00:49 Dose: 200 mls Sodium Chloride (Normal Saline 0.9%) 1,000 mls @ 0 mls/hr IV .Q0M [facility] Cefepime HCl 2 gm/ Sodium (Chloride) 100 mls @ 200 mls/hr IVPB 0200,1400 [facility] Last Admin: 05/08/18 00:49 Dose: 100 mls Ibuprofen (Motrin) 400 mg PO Q4H PRN PRN Reason: Fever > 101 Miscellaneous Medication (Pharmacy To Dose) 1 each IVPB ONE PRN PRN Reason: DOSING Stop: 06/06/18 02:26 Ondansetron HCl (Zofran Odt) 4 mg PO Q6H PRN PRN Reason: Nausea/Vomiting Ondansetron HCl (Zofran) 4 mg IVP Q6H PRN PRN Reason: Nausea/Vomiting
[2018-05-08 13:10] LABS: Vancomycin, Trough 20.7 ug/mL
--- NOTE | 2018-05-08 16:26 | PRG ---
DATE OF SERVICE: 05/08/2018 SERVICE: Pulmonary Medicine. INTERVAL HISTORY: The patient really likes using her CPAP. She is avoiding breaks off this thing. She denies any current chest pain, fevers, or chills. Otherwise, there is no specific change to her condition overnight. Nursing reports no overnight events. PHYSICAL EXAMINATION: VITAL SIGNS: Afebrile, pulse 93, blood pressure 86/57, respirations 18, saturation 98% on 3 L nasal cannula. GENERAL: The patient is awake and alert, in no apparent distress. LUNGS: Decent air entry. Dependent crackles are noted. There is no prolonged expiratory phase or wheezing appreciated. HEART: Normal rate. Regular. ABDOMEN: Soft, nontender, and nondistended. Bowel sounds are positive. MUSCULOSKELETAL: No cyanosis or clubbing. There is trace pitting in the bilateral lower extremities. NEUROLOGIC: Grossly nonfocal. LABORATORY DATA: Vancomycin trough is 21. Blood cultures x2 and body fluid culture from the pleural fluid is negative to date. ASSESSMENT: 1. Acute systolic and valvular heart failure. 2. Mitral and aortic regurgitation. 3. Pleural effusion, status post thoracentesis demonstrating pseudoexudate. 4. [id number] myocardial infarction. DISCUSSION AND PLAN: The patient's oxygen requirements are going up a little bit. I will repeat a chest x-ray tomorrow morning. She will remain in the IMCU as long as she is requiring intermittent BiPAP. We will repeat laboratories tomorrow morning. Empiric antibiotics will be continued for the time being. Job ID: [id number]
--- NOTE | 2018-05-08 19:01 | PRG ---
DATE OF SERVICE: 05/08/2018 SUBJECTIVE: Ms. Flynn is with a BiPAP mask in place or maybe it is a nasal CPAP. She denies any headaches. No chest pain. No abdominal pain or diarrhea. She has been afebrile. OBJECTIVE: VITAL SIGNS: Last blood pressure 90/60. HEENT: Ocular movements conjugate. LUNGS: Symmetric air entry with faint basilar crackles. HEART: S1 and S2 regular rate. ABDOMEN: Soft, not distended. LABORATORY DATA: White cell count 11.7, hemoglobin 11, and platelets 445 from 2 days ago. Creatinine 0.56. Blood cultures thus far no growth. Pleural fluid culture negative. ASSESSMENT AND DISCUSSION: Chronic smoking, large pleural effusion, vegetation in the aortic valve with negative cultures. We will submit Karius test to see if we can get an identification of the organism that is causing the endocarditis and allow proper choice of regiment for continuing treatment. Job ID: [id number]
[2018-05-09] MEDS: Vancomycin HCl 1 GM in Premix Bag 1 BAG IVPB SCH ×2 (01:31→13:50)
[2018-05-09] MEDS: Cefepime 2 GM in Sodium Chloride 0.9% 100 ML IVPB SCH ×2 (02:43→13:50)
[2018-05-09] MEDS: Acetaminophen 500 MG TAB PO PRN (03:45)
[2018-05-09 08:03] LABS: Anion Gap 11 mmol/L (10-20); BUN (Urea Nitrogen) 15 mg/dL (9.8-20.1); Calc. Creatinine Clearance 109 mL/min (70-130); Calcium 9.3 mg/dL (7.8-10.44); Carbon Dioxide 30 mmol/L (22-29); Chloride 98 mmol/L (98-107); Estimated GFR-MDRD 80; Glucose 98 mg/dL (70-105); Magnesium 1.5 mg/dL (1.6-2.6); Phosphorus 3.4 mg/dL (2.3-4.7); Potassium 4.3 mmol/L (3.5-5.1); Sodium 135 mmol/L (136-145)
--- NOTE | 2018-05-09 08:42 | RAD ---
CHEST 1 VIEW: Date: 05/09/18 HISTORY: Pleural effusion. Dyspnea. Follow-up. COMPARISON: 05/05/18. FINDINGS: Cardiac silhouette is magnified, enlarged, and partially obscured by left pleural fluid and basilar o pacity that are similar in appearance to the previous exam. Right lung base is less dense than on the previous study. Persistent blunting of the right lateral costophrenic angle. Pulmonary vasculature i s engorged with widespread reticulonodular interstitial prominence. No evidence of pneumothorax. IMPRESSION: While the right lung base has improved slightly since the most recent exam, dense consolidation at th e left base and pleural fluid are otherwise stable. POS: IRIS
[2018-05-09 09:01] LABS: #Basophils 0.1 thou/uL (0.0-0.2); #Monocytes 0.9 thou/uL (0.11-0.59); #Neutrophils 7.3 thou/uL (1.40-6.50); %Basophils 0.9 % (0.0-1.0); %Eosinophils 0.2 % (0.0-10.0); %Lymphocytes 19.2 % (21.0-51.0); %Monocytes 8.4 % (0.0-10.0); %Neutrophils 71.4 % (42.0-75.0); Anisocytosis SLIGHT = 6-15 cells (100X) (0-5/hpf); Hemoglobin 10.8 g/dL (12.0-16.0); Hypochromia SLIGHT = 6-15 cells (100X) (0-5/hpf); MDiff Complete? YES; Mean Corpuscular HGB CONC 29.2 g/dL (32.0-36.0); Mean Corpuscular Hemoglobin 29.7 pg (27.0-31.0); Mean Platelet Volume 8.1 fL (7.4-10.4); Platelet Count 462 thou/uL (130-400); Red Blood Cell (RBC) Count 3.63 mill/uL (4.20-5.40); White Blood Cell (WBC) Count 10.2 thou/uL (4.8-10.8)
[2018-05-09] MEDS: Famotidine 20 MG TAB PO SCH ×2 (09:22→20:35)
[2018-05-09] MEDS: Carvedilol 3.125 MG TAB PO SCH ×2 (09:22→17:14)
[2018-05-09] MEDS: Enoxaparin Sodium 40 MG/0.4 ML SYRINGE SC SCH (09:22)
[2018-05-09] MEDS: Aspirin 81 mg Enteric Coated Tablet PO SCH (09:22)
--- NOTE | 2018-05-09 09:35 | PDOC.PN ---
- Subjective Encounter Start Date: 05/09/18 Encounter Start Time: 08:10 today her heart rate better controlled, compared to yesterday she is doing better, - Objective MAR Reviewed: Yes Vital Signs & Weight: Vital Signs (12 hours) Temp Pulse Resp BP Pulse Ox 05/09/18 07:17 97.4 F L 05/09/18 06:20 94/64 05/09/18 03:47 97.8 F 05/09/18 01:23 93 22 H 97 05/08/18 23:31 97.4 F L Weight Weight 188 lb 3.2 oz Most Recent Monitor Data Heart Rate from ECG 91 NIBP 94/64 NIBP BP-Mean 74 Respiration from ECG 20 SpO2 96 I&O: 05/08/18 05/09/18 05/10/18 06:59 06:59 06:59 Intake Total 600 Output Total 1050 200 Balance -450 -200 Result Diagrams: 05/09/18 07:00 05/09/18 03:30 Radiology Reviewed by me: Yes (chest xray reviewed) EKG Reviewed by me: Yes (nsr) Phys Exam - Physical Examination Constitutional: NAD HEENT: PERRLA, moist MMs, sclera anicteric Neck: no JVD, supple Respiratory: no wheezing, no rhonchi reduced air entry at base Cardiovascular: RRR, no rub SM+ at apex Gastrointestinal: soft, non-tender, no distention, positive bowel sounds Musculoskeletal: no edema, pulses present Neurological: non-focal, normal sensation Lymphatic: no nodes Psychiatric: normal affect Skin: no rash, normal turgor Dx/Plan (1) Acute hypoxemic respiratory failure Code(s): J96.01 - ACUTE RESPIRATORY FAILURE WITH HYPOXIA Status: Acute (2) Acute systolic ACC/AHA stage C congestive heart failure Code(s): I50.21 - ACUTE SYSTOLIC (CONGESTIVE) HEART FAILURE Status: Acute (3) Aortic valve vegetation Code(s): I33.0 - ACUTE AND SUBACUTE INFECTIVE ENDOCARDITIS Status: Acute (4) Demand ischemia of myocardium Code(s): I24.8 - OTHER FORMS OF ACUTE ISCHEMIC HEART DISEASE Status: Acute (5) Endocarditis Code(s): I38 - ENDOCARDITIS, VALVE UNSPECIFIED Status: Acute (6) Pleural effusion, left Code(s): J90 - PLEURAL EFFUSION, NOT ELSEWHERE CLASSIFIED Status: Acute (7) Severe mitral regurgitation Code(s): I34.0 - NONRHEUMATIC MITRAL (VALVE) INSUFFICIENCY Status: Acute (8) Macrocytic anemia Code(s): D53.9 - NUTRITIONAL ANEMIA, UNSPECIFIED Status: Chronic (9) Obesity (BMI 30-39.9) Code(s): E66.9 - OBESITY, UNSPECIFIED Status: Chronic (10) Tobacco abuse Code(s): Z72.0 - TOBACCO USE Status: Chronic - Plan cont current plan of care, continue antibiotics, respiratory therapy * medication reviewed as below * symptomatic treatment * overall slowly improving * appreciate pulmonary, cardiology and ID team to assist management. Review of Systems - Review of Systems Constitutional: weakness. negative: fever, chills, sweats, malaise, other Eyes: negative: Pain, Vision Change, Conjunctivae Inflammation, Eyelid Inflammation, Redness, Other ENT: negative: Ear Pain, Ear Discharge, Nose Pain, Nose Discharge, Nose Congestion, Mouth Pain, Mouth Swelling, Throat Pain, Throat Swelling, Other Respiratory: Shortness of Breath, SOB with Excertion. negative: Cough, Dry, Hemoptysis, Pleuritic Pain, Sputum, Wheezing Cardiovascular: negative: chest pain, palpitations, orthopnea, paroxysmal nocturnal dyspnea, edema, light headedness, other Gastrointestinal: negative: Nausea, Vomiting, Abdominal Pain, Diarrhea, Constipation, Melena, Hematochezia, Other Genitourinary: negative: Dysuria, Frequency, Incontinence, Hematuria, Retention , Other Musculoskeletal: negative: Neck Pain, Shoulder Pain, Arm Pain, Back Pain, Hand Pain, Leg Pain, Foot Pain, Other Skin: negative: Rash, Lesions, Boaz, Bruising, Other - Medications/Allergies Allergies/Adverse Reactions: Allergies Allergy/AdvReac Type Severity Reaction Status Date / Time No Known Allergies Allergy Unverified 05/05/18 12:59 Medications: Current Medications Acetaminophen (Tylenol) 1,000 mg PO Q6H PRN PRN Reason: Mild Pain (1-3) Last Admin: 05/09/18 03:45 Dose: 1,000 mg Aspirin (Ecotrin) 81 mg PO DAILY [facility] Last Admin: 05/09/18 09:22 Dose: 81 mg Carvedilol (Coreg) 3.125 mg PO BID-[facility] Last Admin: 05/09/18 09:22 Dose: 3.125 mg Enoxaparin Sodium (Lovenox) 40 mg SC 0900 [facility] Last Admin: 05/09/18 09:22 Dose: 40 mg Famotidine (Pepcid) 20 mg PO BID [facility] Last Admin: 05/09/18 09:22 Dose: 20 mg Guaifenesin (Robitussin Sf) 200 mg PO Q4H PRN PRN Reason: Cough Vancomycin HCl 1 gm/ Device 200 mls @ 200 mls/hr IVPB 0100,1300 [facility] Last Admin: 05/09/18 01:31 Dose: 200 mls Sodium Chloride (Normal Saline 0.9%) 1,000 mls @ 0 mls/hr IV .Q0M [facility] Cefepime HCl 2 gm/ Sodium (Chloride) 100 mls @ 200 mls/hr IVPB 0200,1400 [facility] Last Admin: 05/09/18 02:43 Dose: 100 mls Ibuprofen (Motrin) 400 mg PO Q4H PRN PRN Reason: Fever > 101 Miscellaneous Medication (Pharmacy To Dose) 1 each IVPB ONE PRN PRN Reason: DOSING Stop: 06/06/18 02:26 Ondansetron HCl (Zofran Odt) 4 mg PO Q6H PRN PRN Reason: Nausea/Vomiting Ondansetron HCl (Zofran) 4 mg IVP Q6H PRN PRN Reason: Nausea/Vomiting
--- NOTE | 2018-05-09 12:16 | PRG ---
DATE OF SERVICE: 05/09/2018 SERVICE: Pulmonary Medicine. INTERVAL HISTORY: The patient is doing really well from respiratory standpoint. Breathing comfortably. No chest discomfort, fevers, or chills. Otherwise, she is fairly stable. PHYSICAL EXAMINATION: VITAL SIGNS: Afebrile. Pulse 95, blood pressure 94/64, respirations 15, saturation 95% on 4 L nasal cannula. GENERAL: The patient is awake and alert, in no apparent distress. LUNGS: Decent air entry. Dependent crackles are minimal. No prolonged expiratory phase or wheezing is appreciated. HEART: Normal rate, regular. ABDOMEN: Soft, nontender, nondistended. Bowel sounds are positive. MUSCULOSKELETAL: No cyanosis or clubbing. There is trace pitting in the bilateral lower extremities with ecchymoses. NEUROLOGICAL: Nonfocal. LABORATORY DATA: WBC 10.2, hemoglobin 10.8, platelets 462,000. Basic metabolic profile is essentially unremarkable. Bicarb 30, magnesium 1.5. Troponin is downtrending, TSH was previously unremarkable. Vancomycin level is 20.7. Blood cultures x2 and urine culture remain unremarkable. IMAGING: Chest x-ray demonstrates left-sided pleural parenchymal abnormality is still present. She still has small right-sided pleural effusion with no significant volume in over there. ASSESSMENT: 1. Acute systolic and valvular heart failure. 2. Mitral and aortic regurgitation. 3. Pleural effusion, status post thoracentesis demonstrating a pseudo exudate. 4. [id number] myocardial infarction. 5. Community-acquired pneumonia, possible. DISCUSSION AND PLAN: We will continue supportive care. She will be on and off BiPAP. Repeat evaluation with thoracentesis may be considered. That being said, at this point, she is only on 4 L nasal cannula. She goes on and off BiPAP through time. Hopefully, we will be able to define her anatomy Thursday or Thursday. That being said, she will likely require some type of revascularization procedure and/or consideration of replacing these severely abnormal valves. Long-term prognosis is likely quite poor. Pulmonary will follow along. Job ID: [id number]
[2018-05-09 12:53] LABS: Vancomycin, Trough 29.2 ug/mL
[2018-05-09] MEDS ORDERED: Magnesium Sulfate 4 GM in Sodium Chloride 0.9% 250 ML 250 ML IVPB SCH (13:00)
[2018-05-09] MEDS ORDERED: Furosemide 20 MG/2 ML VIAL SLOW IVP SCH (13:30)
[2018-05-10] MEDS: Cefepime 2 GM in Sodium Chloride 0.9% 100 ML IVPB SCH ×2 (02:46→13:57)
[2018-05-10] MEDS: Carvedilol 3.125 MG TAB PO SCH ×2 (09:12→17:18)
[2018-05-10] MEDS: Famotidine 20 MG TAB PO SCH ×2 (09:12→21:07)
[2018-05-10] MEDS: Enoxaparin Sodium 40 MG/0.4 ML SYRINGE SC SCH (09:13)
[2018-05-10] MEDS: Aspirin 81 mg Enteric Coated Tablet PO SCH (09:13)
[2018-05-10] MEDS: Vancomycin HCl 1.25 GM in Sodium Chloride 0.9% 250 ML 250 ML IVPB SCH (09:13)
--- NOTE | 2018-05-10 12:03 | PDOC.PN ---
- Subjective Encounter Start Date: 05/10/18 Encounter Start Time: 09:00 pt is still requiring bipap, no chest pain, still has dyspnea - Objective MAR Reviewed: Yes Vital Signs & Weight: Vital Signs (12 hours) Temp Pulse Resp Pulse Ox 05/10/18 11:22 97.4 F L 05/10/18 08:00 96 05/10/18 07:34 96.8 F L 05/10/18 03:59 97.0 F L 05/10/18 01:26 87 20 98 Weight Weight 188 lb 3.2 oz Most Recent Monitor Data Heart Rate from ECG 89 NIBP 102/67 NIBP BP-Mean 78 Respiration from ECG 22 SpO2 100 I&O: 05/09/18 05/10/18 05/11/18 06:59 06:59 06:59 Intake Total 1150 1405 Output Total 1250 825 Balance -100 580 Result Diagrams: 05/09/18 07:00 05/09/18 03:30 EKG Reviewed by me: Yes (nsr) Phys Exam - Physical Examination Constitutional: NAD HEENT: PERRLA, moist MMs, sclera anicteric, oral pharynx no lesions Neck: no JVD, supple Respiratory: no wheezing, no rales, no rhonchi reduced air entry Cardiovascular: RRR, no rub SM+ Gastrointestinal: soft, non-tender, no distention, positive bowel sounds Musculoskeletal: no edema, pulses present Neurological: non-focal Lymphatic: no nodes Psychiatric: normal affect, A&O x 3 Skin: no rash, normal turgor Dx/Plan (1) Acute hypoxemic respiratory failure Code(s): J96.01 - ACUTE RESPIRATORY FAILURE WITH HYPOXIA Status: Acute (2) Acute systolic ACC/AHA stage C congestive heart failure Code(s): I50.21 - ACUTE SYSTOLIC (CONGESTIVE) HEART FAILURE Status: Acute (3) Aortic valve vegetation Code(s): I33.0 - ACUTE AND SUBACUTE INFECTIVE ENDOCARDITIS Status: Acute (4) Demand ischemia of myocardium Code(s): I24.8 - OTHER FORMS OF ACUTE ISCHEMIC HEART DISEASE Status: Acute (5) Endocarditis Code(s): I38 - ENDOCARDITIS, VALVE UNSPECIFIED Status: Acute (6) Pleural effusion, left Code(s): J90 - PLEURAL EFFUSION, NOT ELSEWHERE CLASSIFIED Status: Acute (7) Severe mitral regurgitation Code(s): I34.0 - NONRHEUMATIC MITRAL (VALVE) INSUFFICIENCY Status: Acute (8) Macrocytic anemia Code(s): D53.9 - NUTRITIONAL ANEMIA, UNSPECIFIED Status: Chronic (9) Obesity (BMI 30-39.9) Code(s): E66.9 - OBESITY, UNSPECIFIED Status: Chronic (10) Tobacco abuse Code(s): Z72.0 - TOBACCO USE Status: Chronic - Plan cont current plan of care, plan discussed w/ family, continue antibiotics * tomorrow cardiology will try to do cardiac cath on bipap * medication reviewed as below * symptomatic treatment * follow culture * antibiotics as per ID team * discussed with family bedside. Review of Systems - Review of Systems Eyes: negative: Pain, Vision Change, Conjunctivae Inflammation, Eyelid Inflammation, Redness, Other ENT: negative: Ear Pain, Ear Discharge, Nose Pain, Nose Discharge, Nose Congestion, Mouth Pain, Mouth Swelling, Throat Pain, Throat Swelling, Other Respiratory: Shortness of Breath, SOB with Excertion. negative: Cough, Dry, Hemoptysis, Pleuritic Pain, Sputum, Wheezing Cardiovascular: orthopnea. negative: chest pain, palpitations, paroxysmal nocturnal dyspnea, edema, light headedness, other Gastrointestinal: negative: Nausea, Vomiting, Abdominal Pain, Diarrhea, Constipation, Melena, Hematochezia, Other Genitourinary: negative: Dysuria, Frequency, Incontinence, Hematuria, Retention , Other Musculoskeletal: negative: Neck Pain, Shoulder Pain, Arm Pain, Back Pain, Hand Pain, Leg Pain, Foot Pain, Other Skin: negative: Rash, Lesions, Boaz, Bruising, Other - Medications/Allergies Allergies/Adverse Reactions: Allergies Allergy/AdvReac Type Severity Reaction Status Date / Time No Known Allergies Allergy Unverified 05/05/18 12:59 Medications: Current Medications Acetaminophen (Tylenol) 1,000 mg PO Q6H PRN PRN Reason: Mild Pain (1-3) Last Admin: 05/09/18 03:45 Dose: 1,000 mg Aspirin (Ecotrin) 81 mg PO DAILY [facility] Last Admin: 05/10/18 09:13 Dose: 81 mg Carvedilol (Coreg) 3.125 mg PO BID-[facility] Last Admin: 05/10/18 09:12 Dose: 3.125 mg Enoxaparin Sodium (Lovenox) 40 mg SC 0900 [facility] Last Admin: 05/10/18 09:13 Dose: 40 mg Famotidine (Pepcid) 20 mg PO BID [facility] Last Admin: 05/10/18 09:12 Dose: 20 mg Guaifenesin (Robitussin Sf) 200 mg PO Q4H PRN PRN Reason: Cough Sodium Chloride (Normal Saline 0.9%) 1,000 mls @ 0 mls/hr IV .Q0M [facility] Cefepime HCl 2 gm/ Sodium (Chloride) 100 mls @ 200 mls/hr IVPB 0200,1400 [facility] Last Admin: 05/10/18 02:46 Dose: 100 mls Vancomycin HCl 1.25 gm/ Sodium (Chloride) 250 mls @ 166.667 mls/hr IVPB 0900 [facility] Last Admin: 05/10/18 09:13 Dose: 250 mls Ibuprofen (Motrin) 400 mg PO Q4H PRN PRN Reason: Fever > 101 Last Admin: 05/10/18 11:44 Dose: 400 mg Miscellaneous Medication (Pharmacy To Dose) 1 each IVPB ONE PRN PRN Reason: DOSING Stop: 06/06/18 02:26 Ondansetron HCl (Zofran Odt) 4 mg PO Q6H PRN PRN Reason: Nausea/Vomiting Ondansetron HCl (Zofran) 4 mg IVP Q6H PRN PRN Reason: Nausea/Vomiting
--- NOTE | 2018-05-10 14:14 | PRG ---
DATE OF SERVICE: 05/10/2018 SERVICE: Pulmonary Medicine. INTERVAL HISTORY: The patient is doing okay from respiratory standpoint. That being said, with minimal interruption in BiPAP therapy, she decompensates after about 30 to 45 minutes. As such, I do not think she is going to be able lie flat without positive airway pressure support for any procedure. That being said, if we can do it on BiPAP, I think she should be able to tolerate just fine. She currently denies any chest pain, nausea, or vomiting. She does not have any shortness of breath, but is currently on BiPAP. She looks fairly comfortable right now. Her blood pressures have firmed up at touch, although she is still quite marginal. OBJECTIVE: VITAL SIGNS: Afebrile, pulse 83, blood pressure 117/69, respirations 18, and saturation 96% on BiPAP at 10/5 with 40% FiO2. GENERAL: The patient is awake and alert, in no apparent distress. LUNGS: Decent air entry. Dependent crackles are present. There is decreased air entry at the left base. HEART: Normal rate and regular. ABDOMEN: Soft, nontender, and nondistended. Bowel sounds are positive. MUSCULOSKELETAL: No cyanosis or clubbing. No pitting in bilateral lower extremities. NEUROLOGIC: Grossly nonfocal. LABORATORY DATA: BNP is uptrending to 3100 despite the fact that we have been diuresing her gently. Blood cultures x2 and body fluid culture are unremarkable. ASSESSMENT: 1. Acute systolic and valvular heart failure. 2. Mitral and aortic regurgitation. 3. Pleural effusion, status post thoracentesis demonstrating a pseudoexudate. 4. Non-ST elevation myocardial infarction. 5. Community-acquired pneumonia, unlikely. DISCUSSION AND PLAN: The patient is stable from respiratory standpoint. I do believe that the small amount of pressure she gets from the CPAP does two things for her. It probably helps a touch with cardiac output, and also decreases atelectasis. As such, I think we are going to prepare for cardiac catheterization tomorrow on positive pressure ventilation. Hopefully, we can define her anatomy and figure out exactly what the next step is going to be. Pulmonary Critical Care will continue to follow along. She really can leave the [facility] at this point. Obviously, she will not tolerate conscious sedation without any protected airway. Job ID: [id number]
[2018-05-10 15:41] LABS: Reference Lab Name KARIUS
[2018-05-10 15:42] LABS: Ref Lab Test Ordered KARIUS TEST
[2018-05-10] MEDS ORDERED: Communication Order-Pharmacy FS SCH (19:00)
[2018-05-10] MEDS: Acetaminophen 500 MG TAB PO PRN (21:11)
[2018-05-11] MEDS: Cefepime 2 GM in Sodium Chloride 0.9% 100 ML IVPB SCH ×2 (02:04→15:10)
[2018-05-11] MEDS: Sodium Chloride 0.9% 1,000 ML IV SCH ×2 (06:40→16:50)
[2018-05-11] MEDS ORDERED: DOBUTamine 250 MG/20 ML VIAL ONE (07:30)
[2018-05-11] MEDS: DOBUTamine 500 mg/250 ml 250 ML IVPB SCH (07:35)
[2018-05-11] MEDS: Carvedilol 3.125 MG TAB PO SCH (07:35)
--- NOTE | 2018-05-11 07:36 | PRG ---
DATE OF SERVICE: 05/10/2018 SUBJECTIVE: Ms. Flynn continues to require BiPAP. I did talk to her as well as the patient. She appears more stable hemodynamically, although blood pressure appears to be in the 90s. Heart rate is down in the 80s. No specific complaints. She is continued to diurese. Her BNP today was 3100, which is markedly elevated. OBJECTIVE: VITAL SIGNS: Blood pressure 90s/50s, pulse 80s, respirations 20. LUNGS: Crackles noted bilaterally. HEART: Regular rate and rhythm. ABDOMEN: Soft, nontender, nondistended. EXTREMITIES: No edema. IMPRESSION: 1. Severe cardiomyopathy. 2. Endocarditis of unknown etiology. 3. Chronic obstructive pulmonary disease. RECOMMENDATIONS: Certainly complex case given the findings described above. Plan is to proceed with coronary angiography only to assess her coronary anatomy if she is hemodynamically stable. I discussed proceeding in full detail with Ms. Flynn as well as her . Risks included, but not limited to the following were sudden , stroke, ID, need for emergency surgery, loss of limb, bleeding, and infection, as well as reaction to medication. All questions were answered. Given the above, the patient agreed to proceed with the above procedure. Job ID: [id number]
[2018-05-11] MEDS: Vancomycin HCl 1.25 GM in Sodium Chloride 0.9% 250 ML 250 ML IVPB SCH (09:42)
[2018-05-11] MEDS: Aspirin 81 mg Enteric Coated Tablet PO SCH (10:27)
[2018-05-11] MEDS: Famotidine 20 MG TAB PO SCH ×2 (10:27→22:07)
--- NOTE | 2018-05-11 10:43 | PDOC.PN ---
- Subjective Encounter Start Date: 05/11/18 Encounter Start Time: 09:35 Patient seen and examined. No new complaints. No overnight events - Objective MAR Reviewed: Yes Vital Signs & Weight: Vital Signs (12 hours) Temp Pulse Resp Pulse Ox 05/11/18 07:23 97.4 F L 05/11/18 07:00 94 97 05/11/18 06:55 97.4 F L 05/11/18 04:00 95.6 F L 05/11/18 02:47 14 05/11/18 00:12 96 05/11/18 00:00 97.0 F L Weight Weight 195 lb 4.8 oz Most Recent Monitor Data Heart Rate from ECG 80 NIBP 97/67 NIBP BP-Mean 77 Respiration from ECG 23 SpO2 99 I&O: 05/10/18 05/11/18 05/12/18 06:59 06:59 06:59 Intake Total 1405 1090 Output Total 825 700 Balance 580 390 Result Diagrams: 05/09/18 07:00 05/09/18 03:30 EKG Reviewed by me: Yes (nsr) Phys Exam - Physical Examination Constitutional: NAD on bipap HEENT: PERRLA, sclera anicteric Neck: supple, full ROM Respiratory: no wheezing, no rhonchi basal rales Cardiovascular: RRR, no rub SM+ Gastrointestinal: soft, non-tender, no distention, positive bowel sounds Musculoskeletal: no edema, pulses present Neurological: non-focal, normal sensation Lymphatic: no nodes Psychiatric: normal affect Skin: no rash, normal turgor Dx/Plan (1) Acute hypoxemic respiratory failure Code(s): J96.01 - ACUTE RESPIRATORY FAILURE WITH HYPOXIA Status: Acute (2) Acute systolic ACC/AHA stage C congestive heart failure Code(s): I50.21 - ACUTE SYSTOLIC (CONGESTIVE) HEART FAILURE Status: Acute (3) Aortic valve vegetation Code(s): I33.0 - ACUTE AND SUBACUTE INFECTIVE ENDOCARDITIS Status: Acute (4) Demand ischemia of myocardium Code(s): I24.8 - OTHER FORMS OF ACUTE ISCHEMIC HEART DISEASE Status: Acute (5) Endocarditis Code(s): I38 - ENDOCARDITIS, VALVE UNSPECIFIED Status: Acute (6) Pleural effusion, left Code(s): J90 - PLEURAL EFFUSION, NOT ELSEWHERE CLASSIFIED Status: Acute (7) Severe mitral regurgitation Code(s): I34.0 - NONRHEUMATIC MITRAL (VALVE) INSUFFICIENCY Status: Acute (8) Macrocytic anemia Code(s): D53.9 - NUTRITIONAL ANEMIA, UNSPECIFIED Status: Chronic (9) Obesity (BMI 30-39.9) Code(s): E66.9 - OBESITY, UNSPECIFIED Status: Chronic (10) Tobacco abuse Code(s): Z72.0 - TOBACCO USE Status: Chronic - Plan cont current plan of care, plan discussed w/ family, continue antibiotics * follow up on culture send out for uncommon organism for endocarditis, ID following . * medication reviewed as below * symptomatic treatment * today cardiac cath * spoke with and updated condition and plan * continue dobutamine for now Review of Systems - Review of Systems ENT: negative: Ear Pain, Ear Discharge, Nose Pain, Nose Discharge, Nose Congestion, Mouth Pain, Mouth Swelling, Throat Pain, Throat Swelling, Other Respiratory: Cough, Shortness of Breath, SOB with Excertion. negative: Dry, Hemoptysis, Pleuritic Pain, Sputum, Wheezing Cardiovascular: negative: chest pain, palpitations, orthopnea, paroxysmal nocturnal dyspnea, edema, light headedness, other Gastrointestinal: negative: Nausea, Vomiting, Abdominal Pain, Diarrhea, Constipation, Melena, Hematochezia, Other Genitourinary: negative: Dysuria, Frequency, Incontinence, Hematuria, Retention , Other Musculoskeletal: negative: Neck Pain, Shoulder Pain, Arm Pain, Back Pain, Hand Pain, Leg Pain, Foot Pain, Other Skin: negative: Rash, Lesions, Boaz, Bruising, Other - Medications/Allergies Allergies/Adverse Reactions: Allergies Allergy/AdvReac Type Severity Reaction Status Date / Time No Known Allergies Allergy Unverified 05/05/18 12:59 Medications: Current Medications Acetaminophen (Tylenol) 1,000 mg PO Q6H PRN PRN Reason: Mild Pain (1-3) Last Admin: 05/10/18 21:11 Dose: 1,000 mg Aspirin (Ecotrin) 81 mg PO DAILY [facility] Last Admin: 05/11/18 10:27 Dose: Not Given Carvedilol (Coreg) 3.125 mg PO BID[facility] Last Admin: 05/11/18 07:35 Dose: 3.125 mg Famotidine (Pepcid) 20 mg PO BID [facility] Last Admin: 05/11/18 10:27 Dose: Not Given Guaifenesin (Robitussin Sf) 200 mg PO Q4H PRN PRN Reason: Cough Cefepime HCl 2 gm/ Sodium (Chloride) 100 mls @ 200 mls/hr IVPB 0200,1400 [facility] Last Admin: 05/11/18 02:04 Dose: 100 mls Vancomycin HCl 1.25 gm/ Sodium (Chloride) 250 mls @ 166.667 mls/hr IVPB 0900 [facility] Last Admin: 05/11/18 09:42 Dose: 250 mls Sodium Chloride (Normal Saline 0.9%) 1,000 mls @ 100 mls/hr IV .Q10H [facility] Last Admin: 05/11/18 06:40 Dose: 1,000 mls Dobutamine HCl/Dextrose (Dobutamine 500 Mg/250 Ml) 250 mls @ 0 mls/hr IVPB INF [facility] Last Admin: 05/11/18 07:35 Dose: 250 mls Ibuprofen (Motrin) 400 mg PO Q4H PRN PRN Reason: Fever > 101 Last Admin: 05/10/18 11:44 Dose: 400 mg Miscellaneous Medication (Pharmacy To Dose) 1 each IVPB ONE PRN PRN Reason: DOSING Stop: 06/06/18 02:26 Ondansetron HCl (Zofran Odt) 4 mg PO Q6H PRN PRN Reason: Nausea/Vomiting Ondansetron HCl (Zofran) 4 mg IVP Q6H PRN PRN Reason: Nausea/Vomiting Sodium Chloride (Flush - Normal Saline) 10 ml IVF Q12HR [facility] Last Admin: 05/11/18 10:27 Dose: Not Given Sodium Chloride (Flush - Normal Saline) 10 ml IVF PRN PRN PRN Reason: Saline Flush
--- NOTE | 2018-05-11 12:00 | PRG ---
DATE OF SERVICE: 05/11/2018 SERVICE: Pulmonary Medicine. INTERVAL HISTORY: The patient is doing poorly from a respiratory standpoint. Whenever she comes off her BiPAP, she has decompensation, which is fairly quick. When she is wearing her BiPAP, she feels fairly comfortable. Denies any current chest pain, fevers, or chills. Otherwise, there has been no change to her condition. PHYSICAL EXAMINATION: VITAL SIGNS: Afebrile, pulse 80, blood pressure 97/67, respirations 23, saturation 99% on 40% FiO2 delivered via BiPAP 10/5. GENERAL: The patient is awake and alert, in no apparent distress. LUNGS: Excellent air entry. There is no prolonged expiratory phase or wheezing present. HEART: Normal rate regular. ABDOMEN: Soft, nontender, and nondistended. Bowel sounds positive. MUSCULOSKELETAL: No cyanosis or clubbing. There is no pitting in the bilateral lower extremities. NEUROLOGIC: Grossly nonfocal. ASSESSMENT: 1. Acute systolic and valvular heart failure. 2. Mitral and aortic regurgitation. 3. Pleural effusions, status post thoracentesis demonstrating a pseudo-exudate. 4. [id number] myocardial infarction. 5. Community-acquired pneumonia, unlikely. 6. Valvular vegetation. DISCUSSION AND PLAN: The patient is going down for the cardiac catheterization today to define her anatomy. I will repeat laboratories and a chest x-ray tomorrow morning. If the fluid is still present to a significant degree, I may consider a thoracentesis to see, if we can liberate her from her BiPAP more frequently. Job ID: [id number]
[2018-05-11] MEDS ORDERED: Heparin 10,000 UNITS/1 ML VIAL ONE (13:17)
[2018-05-11] MEDS ORDERED: Verapamil 5 MG/2 ML VIAL ONE (13:17)
[2018-05-11] MEDS ORDERED: Nitroglycerin 100MG/250ML BOT 250 ML ONE (13:17)
[2018-05-11] MEDS ORDERED: Acetaminophen/Codeine 30-300mg Tablet PO PRN ×2 (13:39)
[2018-05-11] MEDS ORDERED: Nitroglycerin 0.4 MG TAB (25 Tab Bottle) SL PRN (13:39)
[2018-05-11] MEDS ORDERED: Sodium Chloride 0.9% 200 ML IV PRN (13:39)
[2018-05-11] MEDS ORDERED: Sodium Chloride 0.9% 1,000 ML IV SCH (13:45)
[2018-05-11] MEDS ORDERED: Iopamidol 370 76% 100 ML VIAL ONE (16:32)
--- NOTE | 2018-05-11 17:07 | PRG ---
DATE OF SERVICE: 05/11/2018 SUBJECTIVE: Ms. Flynn still decompensates if she has taken from the BiPAP. She feels comfortable while wearing the BiPAP. The patient is going to have a coronary angiogram to assess her anatomy. She denies any chest pain. No abdominal pain or diarrhea. OBJECTIVE: VITAL SIGNS: The patient has been afebrile. Blood pressure 113/66. HEENT: Ocular movements conjugate. LUNGS: With basilar crackles. HEART: S1 and S2, regular rate. ABDOMEN: Soft, not distended or tender. EXTREMITIES: Moves extremities equally. LABORATORY DATA: White cell count is at 10.2, hemoglobin 10.8, platelets 462 with 71% neutrophils. Sodium 136, creatinine 0.56, albumin 3.2, globulin 4.2. Karius test is pending at this time. The echocardiogram was taken, demonstrated severe mitral regurgitation and vegetation present in the left ventricular side of the aortic valve and moderate to severe aortic regurgitation. ASSESSMENT AND DISCUSSION: Chronic smoking, large pleural effusion, vegetation in the aortic valve with negative cultures and a wide open aortic insufficiency and mitral regurgitation. The valvular abnormalities probably leading to the failure of the BiPAP weaning and she may need a valve replacement. Waiting on the Karius test to see if we can identify the cause of the endocarditis. She is currently on cefepime and vancomycin to be continued. Job ID: [id number]
[2018-05-12] MEDS: Acetaminophen 500 MG TAB PO PRN (00:15)
[2018-05-12] MEDS: Cefepime 2 GM in Sodium Chloride 0.9% 100 ML IVPB SCH ×2 (02:25→14:44)
[2018-05-12] MEDS: DOBUTamine 500 mg/250 ml 250 ML IVPB SCH ×2 (03:07→22:08)
[2018-05-12 05:26] LABS: #Basophils 0.1 thou/uL (0.0-0.2); #Lymphocytes 1.8 thou/uL (1.20-3.40); #Monocytes 0.9 thou/uL (0.11-0.59); #Neutrophils 7.4 thou/uL (1.40-6.50); %Basophils 0.6 % (0.0-1.0); %Eosinophils 0.2 % (0.0-10.0); %Lymphocytes 17.8 % (21.0-51.0); %Monocytes 8.4 % (0.0-10.0); Hemoglobin 10.2 g/dL (12.0-16.0); Mean Corpuscular Hemoglobin 30.3 pg (27.0-31.0); Mean Platelet Volume 7.5 fL (7.4-10.4); Platelet Count 496 thou/uL (130-400); RBC Distribution Width 17.2 % (11.5-14.5); Red Blood Cell (RBC) Count 3.38 mill/uL (4.20-5.40); White Blood Cell (WBC) Count 10.1 thou/uL (4.8-10.8)
[2018-05-12] MEDS: Sodium Chloride 0.9% 1,000 ML IV SCH ×3 (05:36→20:32)
[2018-05-12 05:38] LABS: Anion Gap 13 mmol/L (10-20); BUN (Urea Nitrogen) 23 mg/dL (9.8-20.1); Calc. Creatinine Clearance 75 mL/min (70-130); Calcium 8.8 mg/dL (7.8-10.44); Carbon Dioxide 25 mmol/L (22-29); Chloride 98 mmol/L (98-107); Estimated GFR-MDRD 51; Glucose 107 mg/dL (70-105); Magnesium 1.7 mg/dL (1.6-2.6); Potassium 4.2 mmol/L (3.5-5.1); Sodium 132 mmol/L (136-145)
[2018-05-12] MEDS ORDERED: Furosemide 40 MG/4 ML VIAL IVP SCH (07:30)
--- NOTE | 2018-05-12 07:45 | RAD ---
SINGLE VIEW CHEST: Date: 05/12/18 COMPARISON: 05/09/18. HISTORY: Pleural effusion. FINDINGS: Single view of the chest shows an enlarged but stable cardiomediastinal silhouette. There is a modera te left pleural effusion with adjacent atelectasis, unchanged. IMPRESSION: Stable exam. POS: [facility]
[2018-05-12] MEDS: Famotidine 20 MG TAB PO SCH ×2 (09:12→20:31)
[2018-05-12] MEDS: Aspirin 81 mg Enteric Coated Tablet PO SCH (09:12)
[2018-05-12 10:04] LABS: Vancomycin, Trough 34.9 ug/mL
--- NOTE | 2018-05-12 10:05 | PDOC.PN ---
- Subjective Encounter Start Date: 05/12/18 Encounter Start Time: 11:20 Subjective: Patient requiring Bipap on and off. Had cath yesterday with reportedly no -: interventions necessary. No chest pain currently. - Objective MAR Reviewed: Yes Vital Signs & Weight: Vital Signs (12 hours) Temp Pulse Resp Pulse Ox 05/12/18 07:42 98 05/12/18 07:03 97.6 F 05/12/18 04:08 97.4 F L 05/12/18 02:31 81 20 100 05/12/18 00:16 97.9 F 05/12/18 00:08 89 100 Weight Weight 193 lb Most Recent Monitor Data Heart Rate from ECG 95 NIBP 128/78 NIBP BP-Mean 94 Respiration from ECG 18 SpO2 100 I&O: 05/11/18 05/12/18 05/13/18 06:59 06:59 06:59 Intake Total 1090 2369.6 Output Total 700 750 Balance 390 1619.6 Result Diagrams: 05/12/18 05:05 05/12/18 05:05 Radiology Reviewed by me: Yes (Cardiomegally, mod left pleural eff, unchanged) Phys Exam - Physical Examination Constitutional: NAD HEENT: moist MMs Respiratory: no wheezing, no rales, no rhonchi Cardiovascular: RRR Gastrointestinal: soft, positive bowel sounds Neurological: non-focal Psychiatric: normal affect, A&O x 3 Dx/Plan (1) Aortic valve vegetation Code(s): I33.0 - ACUTE AND SUBACUTE INFECTIVE ENDOCARDITIS Status: Acute Comment: Likely endocarditis, on Vanc and Cefepime, blood cultures negative, awaiting Karius test per Dr. Coburn (2) Acute hypoxemic respiratory failure Code(s): J96.01 - ACUTE RESPIRATORY FAILURE WITH HYPOXIA Status: Acute (3) Acute systolic ACC/AHA stage C congestive heart failure Code(s): I50.21 - ACUTE SYSTOLIC (CONGESTIVE) HEART FAILURE Status: Acute Comment: EF 10-15%, severe aortic and mitrial regurgitation (4) Demand ischemia of myocardium Code(s): I24.8 - OTHER FORMS OF ACUTE ISCHEMIC HEART DISEASE Status: Acute (5) Pleural effusion, left Code(s): J90 - PLEURAL EFFUSION, NOT ELSEWHERE CLASSIFIED Status: Acute Comment: s/p thoracentesis, cultures negative (6) Macrocytic anemia Code(s): D53.9 - NUTRITIONAL ANEMIA, UNSPECIFIED Status: Chronic (7) Obesity (BMI 30-39.9) Code(s): E66.9 - OBESITY, UNSPECIFIED Status: Chronic (8) Tobacco abuse Code(s): Z72.0 - TOBACCO USE Status: Chronic - Plan cont current plan of care, continue antibiotics, respiratory therapy Continues to require Bipap, cardiac cath results pending, will likely need -: aortic valve replacement * . - Discharge Day Encounter end time: 11:30 Pulmonology Consult: Meds - Medications MAR Reviewed: Yes Medications: Current Medications Acetaminophen (Tylenol) 1,000 mg PO Q6H PRN PRN Reason: Mild Pain (1-3) Last Admin: 05/12/18 00:15 Dose: 1,000 mg Acetaminophen/Codeine Phosphate (Tylenol #3) 1 tab PO Q4H PRN PRN Reason: Mild Pain (1-3) Acetaminophen/Codeine Phosphate (Tylenol #3) 2 tab PO Q4H PRN PRN Reason: Moderate Pain (4-6) Aspirin (Ecotrin) 81 mg PO DAILY [facility] Last Admin: 05/12/18 09:12 Dose: 81 mg Famotidine (Pepcid) 20 mg PO BID [facility] Last Admin: 05/12/18 09:12 Dose: 20 mg Guaifenesin (Robitussin Sf) 200 mg PO Q4H PRN PRN Reason: Cough Cefepime HCl 2 gm/ Sodium (Chloride) 100 mls @ 200 mls/hr IVPB 0200,1400 [facility] Last Admin: 05/12/18 02:25 Dose: 100 mls Vancomycin HCl 1.25 gm/ Sodium (Chloride) 250 mls @ 166.667 mls/hr IVPB 0900 [facility] Last Admin: 05/11/18 09:42 Dose: 250 mls Sodium Chloride (Normal Saline 0.9%) 1,000 mls @ 100 mls/hr IV .Q10H [facility] Last Admin: 05/12/18 05:36 Dose: Not Given Dobutamine HCl/Dextrose (Dobutamine 500 Mg/250 Ml) 250 mls @ 0 mls/hr IVPB INF [facility] Last Admin: 05/12/18 03:07 Dose: 250 mls Sodium Chloride (Normal Saline 0.9%) 200 mls @ 0 mls/hr IV ONE PRN PRN Reason: SBP < 90 Stop: 05/12/18 13:40 Ibuprofen (Motrin) 400 mg PO Q4H PRN PRN Reason: Fever > 101 Last Admin: 05/10/18 11:44 Dose: 400 mg Miscellaneous Medication (Pharmacy To Dose) 1 each IVPB ONE PRN PRN Reason: DOSING Stop: 06/06/18 02:26 Nitroglycerin (Nitrostat) 0.4 mg SL Q5MIN PRN PRN Reason: Chest Pain Ondansetron HCl (Zofran Odt) 4 mg PO Q6H PRN PRN Reason: Nausea/Vomiting Ondansetron HCl (Zofran) 4 mg IVP Q6H PRN PRN Reason: Nausea/Vomiting Sodium Chloride (Flush - Normal Saline) 10 ml IVF Q12HR [facility] Last Admin: 05/12/18 09:13 Dose: Not Given Sodium Chloride (Flush - Normal Saline) 10 ml IVF PRN PRN PRN Reason: Saline Flush - Allergies Allergies/Adverse Reactions: Allergies Allergy/AdvReac Type Severity Reaction Status Date / Time No Known Allergies Allergy Unverified 05/05/18 12:59
[2018-05-12] MEDS: Vancomycin HCl 1.25 GM in Sodium Chloride 0.9% 250 ML 250 ML IVPB SCH (10:33)
--- NOTE | 2018-05-12 11:34 | PQF ---
CLINICAL DOCUMENTATION IMPROVEMENT CLARIFICATION FORM: ICD-10 Updated PLEASE DO AN ADDENDUM TO THE PROGRESS NOTE WITH ANY DOCUMENTATION UPDATES OR ADDITIONS AND CARRY THROUGH TO DC SUMMARY. THANK YOU. DATE: 05/12/18 ATTN: DR. SO Please exercise your independent, professional judgment in responding to the clarification form. Clinical indicators are provided on the bottom of this form for your review Please check appropriate box(s): AMI TYPE: [ ] NSTEMI [ ] WV TYPE 2 [ X ] DEMAND ISCHEMIA [ ] Other diagnosis [ ] Unable to determine In addition, please specify: Present on Admission (POA): [ X ] Yes [ ] No [ ] Unable to determine CLINICAL INDICATORS - SIGNS / SYMPTOMS / LABS 05/06 ([facility]): "NSTEMI" 05/10 ([facility]): "DEMAND ISCHEMIA OF MYOCARDIUM" TROPONIN 0.450 / 0.423 / 0.376 RISKS: CARDIOMYOPATHY ENDOCARDITIS AFIB TREATMENT: CARDIAC MONITORING IMCU MONITORING CARDIOLOGY CONSULT ASPIRIN (ER-PRESENT) SERIAL LABS (This form is maintained as a part of the permanent medical record) 2014 [employer]. All Rights Reserved KIET [email or web address] Office: [phone] [facility]
--- NOTE | 2018-05-12 15:10 | PRG ---
DATE OF SERVICE: 05/12/2018 SUBJECTIVE: Ms. Flynn continues to depend on the pressure support from the BiPAP, ventilator. She is awake and follows commands. No chest pain. No abdominal pain or diarrhea. OBJECTIVE: VITAL SIGNS: She has been afebrile throughout. BP 107/75, O2 saturation 98% on BiPAP, heart rate 87. HEENT: Ocular movements are conjugate. LUNGS: Symmetric air entry. Faint basilar crackles. HEART: S1, S2 regular rate with soft apex murmur. LABORATORY DATA: White cell count 10.1, hemoglobin 10.2, platelets 496. Sodium 132, creatinine 1.10. BNP 3100. The Karius test did not show any microorganism detected at a statistically significant level, so we have a negative Karius test and negative blood cultures. ASSESSMENT AND DISCUSSION: Chronic smoking, large pleural effusion, vegetation of aortic valve, negative cultures, and negative Karius test with open aortic insufficiency and mitral regurgitation. 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 She had coronary angiogram, which was normal and I think, Dr. Schuler, is planning on a MCKENZIE to review the area of the valves. May need a valve replacement. Job ID: [id number]
--- NOTE | 2018-05-12 16:51 | PRG ---
DATE OF SERVICE: 05/12/2018 SERVICE: Pulmonary Medicine. INTERVAL HISTORY: The patient is doing poorly from respiratory standpoint. She really cannot tolerate much in way of BiPAP breaks. Otherwise, there has been no interval change to her condition. She had not had any fevers or overnight events. PHYSICAL EXAMINATION: VITAL SIGNS: Afebrile. Pulse 90, blood pressure 132/91, respirations 18, saturation 100% on 5 L nasal cannula currently. HEENT: Normocephalic and atraumatic. Sclerae white. Conjunctivae pink. Oral mucosa is moist without lesions. LUNGS: Decent air entry. Dependent crackles are present. There is decreased air entry in the left base. HEART: Normal rate, regular. ABDOMEN: Soft, nontender, nondistended. Bowel sounds are positive. MUSCULOSKELETAL: No cyanosis or clubbing. No pitting in the bilateral lower extremities. NEUROLOGIC: Grossly nonfocal. LABORATORY DATA: WBC 10.1, hemoglobin 10.2, platelets 496,000. Sodium 132, chloride 98. Basic metabolic profile is otherwise unremarkable. Her creatinine has up trended significantly in the past two days. Blood cultures x2 and body fluid cultures are both negative. IMAGING: Chest x-ray shows stable exam. There is a moderate left-sided pleural effusion with adjacent atelectasis which is unchanged. Right lung has pulmonary vascular congestion. Cardiomegaly is noted. ASSESSMENT: 1. Acute hypoxic respiratory failure. 2. Pleural effusion, status post thoracentesis demonstrating pseudo-exudate. 3. Acute systolic and valvular heart failure. 4. Mitral and aortic regurgitation. 5. Community-acquired pneumonia, unlikely. 6. Valvular vegetation, culture negative. DISCUSSION AND PLAN: The patient is doing poorly from respiratory standpoint. I do not think she is going to get better without definitive correction of these valvular structures. MCKENZIE is being pursued. She is not a candidate for conscious sedation. As such, she will need to have her airway secured before this can be performed. I will coordinate with Dr. Schuler and/or Cardiothoracic Surgery on the best timing of this. Pulmonary Critical Care will continue to follow along. She will need to remain in the [facility]. Job ID: [id number]
[2018-05-13] MEDS: Cefepime 2 GM in Sodium Chloride 0.9% 100 ML IVPB SCH (02:15)
[2018-05-13 05:14] LABS: #Basophils 0.1 thou/uL (0.0-0.2); #Lymphocytes 1.4 thou/uL (1.20-3.40); #Monocytes 0.8 thou/uL (0.11-0.59); #Neutrophils 6.2 thou/uL (1.40-6.50); %Basophils 0.9 % (0.0-1.0); %Eosinophils 0.3 % (0.0-10.0); %Lymphocytes 16.7 % (21.0-51.0); %Monocytes 9.3 % (0.0-10.0); %Neutrophils 72.8 % (42.0-75.0); Hemoglobin 10.9 g/dL (12.0-16.0); Mean Corpuscular HGB CONC 30.4 g/dL (32.0-36.0); Mean Corpuscular Hemoglobin 30.7 pg (27.0-31.0); Mean Platelet Volume 7.8 fL (7.4-10.4); Platelet Count 508 thou/uL (130-400); RBC Distribution Width 17.4 % (11.5-14.5); Red Blood Cell (RBC) Count 3.54 mill/uL (4.20-5.40); White Blood Cell (WBC) Count 8.6 thou/uL (4.8-10.8)
[2018-05-13 05:34] LABS: Phosphorus 3.2 mg/dL (2.3-4.7)
[2018-05-13 05:41] LABS: Anion Gap 11 mmol/L (10-20); BUN (Urea Nitrogen) 21 mg/dL (9.8-20.1); Calc. Creatinine Clearance 89 mL/min (70-130); Calcium 9.2 mg/dL (7.8-10.44); Carbon Dioxide 26 mmol/L (22-29); Chloride 100 mmol/L (98-107); Estimated GFR-MDRD 61; Glucose 79 mg/dL (70-105); Magnesium 1.4 mg/dL (1.6-2.6); Potassium 3.9 mmol/L (3.5-5.1); Sodium 133 mmol/L (136-145)
--- NOTE | 2018-05-13 07:16 | PRG ---
DATE OF SERVICE: 05/12/2018 SUBJECTIVE: Ms. Flynn continues to require BiPAP support. She is seen and sitting up. No other complaints present. She states shortness of breath has improved. She has not put out much fluid overnight. OBJECTIVE: VITAL SIGNS: Blood pressure 127/85, pulse 92, temperature afebrile. LUNGS: Mild crackles noted bilaterally. HEART: Regular rate and rhythm. ABDOMEN: Soft, nontender, nondistended. EXTREMITIES: 1+ pitting edema. PERTINENT LABORATORY DATA: Hemoglobin 10.2. Creatinine 1.1. BNP of 3129. IMPRESSION: 1. Nonischemic cardiomyopathy. 2. 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 RECOMMENDATIONS: I am concerned that Ms. Flynn did require dopamine support for blood pressure. She was on Coreg, which has been discontinued. Her blood pressure now appears more stable on low-dose Dobutrex. I would recommend proceeding with a MCKENZIE. I discussed case with Dr. Duran Hager. We will proceed on Thursday. She will be intubated for the procedure. This will assess her valve a little closer. We will also discuss with Dr. Coburn. We will continue Lasix for further diuresis. Job ID: [id number]
[2018-05-13] MEDS ORDERED: Metolazone 2.5 MG TAB PO SCH (08:30)
--- NOTE | 2018-05-13 08:38 | PDOC.PN ---
- Subjective Encounter Start Date: 05/13/18 Encounter Start Time: 09:30 Subjective: Patient unchanged. Breathing ok on oxygen. Still requiring dobutamine -: Dr. Schuler talking with referral centers, plans on sending for -: MCKENZIE and then valve replacement. - Objective MAR Reviewed: Yes Vital Signs & Weight: Vital Signs (12 hours) Temp Pulse Resp Pulse Ox 05/13/18 07:22 97.0 F L 05/13/18 03:47 97.1 F L 05/13/18 02:47 92 20 99 05/12/18 23:33 99.1 F Weight Weight 188 lb Most Recent Monitor Data Heart Rate from ECG 88 NIBP 116/70 NIBP BP-Mean 85 Respiration from ECG 16 SpO2 100 I&O: 05/12/18 05/13/18 05/14/18 06:59 06:59 06:59 Intake Total 2369.6 1499.6 Output Total 750 2400 Balance 1619.6 -900.4 Result Diagrams: 05/13/18 04:26 05/13/18 04:26 Phys Exam - Physical Examination Constitutional: NAD HEENT: moist MMs Respiratory: no wheezing, no rhonchi few rales, left lung base with decreased breath sounds Cardiovascular: RRR Gastrointestinal: soft, positive bowel sounds Neurological: non-focal, moves all 4 limbs Psychiatric: normal affect, A&O x 3 Dx/Plan (1) Aortic valve vegetation Code(s): I33.0 - ACUTE AND SUBACUTE INFECTIVE ENDOCARDITIS Status: Acute Comment: Likely endocarditis, on Vanc and Cefepime, blood cultures negative, awaiting Karius test per Dr. Coburn (2) Acute hypoxemic respiratory failure Code(s): J96.01 - ACUTE RESPIRATORY FAILURE WITH HYPOXIA Status: Acute (3) Acute systolic ACC/AHA stage C congestive heart failure Code(s): I50.21 - ACUTE SYSTOLIC (CONGESTIVE) HEART FAILURE Status: Acute Comment: EF 10-15%, severe aortic and mitrial regurgitation (4) Demand ischemia of myocardium Code(s): I24.8 - OTHER FORMS OF ACUTE ISCHEMIC HEART DISEASE Status: Acute (5) Pleural effusion, left Code(s): J90 - PLEURAL EFFUSION, NOT ELSEWHERE CLASSIFIED Status: Acute Comment: s/p thoracentesis, cultures negative (6) Macrocytic anemia Code(s): D53.9 - NUTRITIONAL ANEMIA, UNSPECIFIED Status: Chronic (7) Obesity (BMI 30-39.9) Code(s): E66.9 - OBESITY, UNSPECIFIED Status: Chronic (8) Tobacco abuse Code(s): Z72.0 - TOBACCO USE Status: Chronic - Plan cont current plan of care, continue antibiotics, PT/OT, out of bed/ambulate, DVT proph w/SCDs Plan for transfer for valve surgery. * . - Discharge Day Encounter end time: 09:40
[2018-05-13] MEDS: Famotidine 20 MG TAB PO SCH ×2 (08:41→21:11)
[2018-05-13] MEDS: Aspirin 81 mg Enteric Coated Tablet PO SCH (08:42)
[2018-05-13] MEDS: Sodium Chloride 0.9% 1,000 ML IV SCH (08:44)
[2018-05-13] MEDS ORDERED: Vancomycin HCl 1.25 GM in Sodium Chloride 0.9% 250 ML 250 ML IVPB SCH (09:00)
[2018-05-13] MEDS ORDERED: Furosemide 20 MG/2 ML VIAL SLOW IVP SCH (09:00)
[2018-05-13] MEDS: Ondansetron PF 4 MG/2 ML Vial IVP PRN ×2 (09:01→14:52)
[2018-05-13 09:26] LABS: Vancomycin, Random 23.3 ug/mL (See Comment)
[2018-05-13 12:00] LABS: Reference Lab Name LABCORP
[2018-05-13] MEDS ORDERED: Potassium Chloride 20 MEQ TAB PO SCH (13:30)
[2018-05-13] MEDS ORDERED: Magnesium Sulfate 4 GM in Sodium Chloride 0.9% 250 ML 250 ML IVPB SCH (13:30)
--- NOTE | 2018-05-13 13:46 | PRG ---
DATE OF SERVICE: 05/13/2018 SERVICE: Pulmonary Medicine. INTERVAL HISTORY: The patient is actually doing really quite well from respiratory standpoint. Denies any current chest pain, fevers, or chills. Yesterday, she was actually able to tolerate about 6 hours off the BiPAP. That is really a grand improvement as the prior two days, she was able to tolerate a combined less than 2 hours. Overall, however, she is moving in the right direction. She is essentially dependent on the dobutamine. Whenever she comes off the BiPAP, she does well for a couple of hours, but notices when that when it comes off immediately that she has a little bit increased work of breathing. PHYSICAL EXAMINATION: VITAL SIGNS: Afebrile. Pulse 103, blood pressure 120/78, respirations 15, saturation 94% on 40% FiO2 delivered via BiPAP. GENERAL: The patient is awake and alert, in no apparent distress. LUNGS: Decent air entry on the right. There is decreased air entry on the left. No crackles are appreciated. HEART: Normal rate and regular. ABDOMEN: Soft. Nontender. Nondistended. Bowel sounds are positive. MUSCULOSKELETAL: No cyanosis or clubbing. There is trace 1+ pitting in the bilateral lower extremities. NEUROLOGICAL: Grossly nonfocal. LABORATORY DATA: WBC 8.6, hemoglobin 10.9, platelets 508,000. Sodium 133. Basic metabolic profile is otherwise unremarkable. Creatinine is downtrending to 0.93. Magnesium 1.4, phosphorus 3.2. Body fluid cultures x3 are negative. ASSESSMENT: 1. Acute hypoxic respiratory failure. 2. Pleural effusion, status post thoracentesis on the left, demonstrating a pseudoexudate. 3. Acute systolic and valvular heart failure. 4. Mitral and aortic regurgitation. 5. Valvular vegetation, culture negative. DISCUSSION AND PLAN: The patient is actually doing a little bit better on the dobutamine. This is allowing her to diurese. Her kidney function is improving a little bit. Her magnesium is low, which will be replaced. I did a bedside ultrasound today. There is once again a large pleural effusion on the left. There is also a small pleural effusion on the right. That being said, since she is moving in the right direction, we will not repeat thoracentesis. She is tolerating wonderful breaks off the BiPAP today and yesterday. Ultimately, however, I do believe that we are dealing with a cardiac issue that will require an intervention. If one is not performed within the next couple of months, she will probably decondition herself to the point of being a poor candidate. We are making efforts at transitioning her to a higher level of care. If she remains in the [facility], I will continue to follow. Job ID: [id number]
[2018-05-13] MEDS ORDERED: Furosemide 40 MG/4 ML VIAL SLOW IVP SCH (14:00)
[2018-05-13 15:02] VITALS: BMI 32.2
[2018-05-13 15:36] VITALS: BP 129/83
--- NOTE | 2018-05-13 15:43 | PRG ---
DATE OF SERVICE: 05/13/2018 SUBJECTIVE: Ms. Flynn is doing a little better this morning. She is off BiPAP and has been over the last few hours. She has mainly been on BiPAP over the last several days. OBJECTIVE: VITAL SIGNS: Blood pressure 118/98, pulse 107, and respirations 20. LUNGS: Crackles bilaterally. HEART: Regular rate and rhythm. ABDOMEN: Soft, nontender, and nondistended. EXTREMITIES: 1+ pitting edema. PERTINENT LABORATORY DATA: Hemoglobin 10.9, creatinine 0.93, sodium 133, and BNP of 3129. IMPRESSION: 1. Acute systolic heart failure. 2. Moderate to severe aortic insufficiency. 3. Severe mitral regurgitation. RECOMMENDATIONS: I had several discussions with Dr. Hager in addition to Dr. Joe Durham and Dr. Victorino Rocha. Based on the findings of a markedly diminished overall LVEF in addition to likely a healed endocarditis with moderate to severe AI and severe MR, she is at increased risk of complications for operation. The initial plan was to proceed with MCKENZIE. Given that the decision has been made to transfer her to a higher level of care was decided to defer because she will likely need a MCKENZIE at another facility. I have discussed the case with Dr. Sana Kirkland, who has agreed to accept the patient in transfer. She will need BiPAP on the way to [place]. They do have family in [place]. I have discussed this with the family and they are agreeable. Job ID: [id number]
[2018-05-13] MEDS: DOBUTamine 500 mg/250 ml 250 ML IVPB SCH (17:16)
[2018-05-13] MEDS ORDERED: Vancomycin HCl 750 MG in Sodium Chloride 0.9% 250 ML 250 ML IVPB SCH (21:00)
[2018-05-14 03:56] VITALS: TEMP 97.2
[2018-05-14 05:41] LABS: #Lymphocytes 1.9 thou/uL (1.20-3.40); %Basophils 0.4 % (0.0-1.0); %Eosinophils 0.2 % (0.0-10.0); %Monocytes 10.8 % (0.0-10.0); %Neutrophils 67.7 % (42.0-75.0); Hemoglobin 10.3 g/dL (12.0-16.0); Mean Corpuscular HGB CONC 29.1 g/dL (32.0-36.0); Mean Corpuscular Hemoglobin 29.2 pg (27.0-31.0); Mean Platelet Volume 7.7 fL (7.4-10.4); Platelet Count 526 thou/uL (130-400); RBC Distribution Width 17.7 % (11.5-14.5); Red Blood Cell (RBC) Count 3.52 mill/uL (4.20-5.40); White Blood Cell (WBC) Count 8.9 thou/uL (4.8-10.8)
[2018-05-14 05:52] LABS: Anion Gap 13 mmol/L (10-20); BUN (Urea Nitrogen) 16 mg/dL (9.8-20.1); Calc. Creatinine Clearance 89 mL/min (70-130); Carbon Dioxide 28 mmol/L (22-29); Chloride 97 mmol/L (98-107); Estimated GFR-MDRD 63; Glucose 91 mg/dL (70-105); Magnesium 2.2 mg/dL (1.6-2.6); Potassium 4.1 mmol/L (3.5-5.1); Sodium 134 mmol/L (136-145)
--- NOTE | 2018-05-14 05:53 | PDOC.CTH ---
Cardiology Progress Note - Objective Vital Signs Temp Pulse Resp Pulse Ox 05/14/18 03:56 97.2 F L 05/14/18 02:49 85 18 98 05/14/18 00:00 97.9 F 05/13/18 19:30 97.8 F Admit Weight 180 lb 12.465 oz Weight 188 lb 05/12/18 05/13/18 05/14/18 06:59 06:59 06:59 Intake Total 2369.6 1499.6 1010 Output Total 750 2400 800 Balance 1619.6 -900.4 210 - Physical Examination General/Neuro: NAD Neck: no JVD present Lungs: unlabored respirations Heart: PMI normal, RRR Abdomen: no HSM, NT/ND, soft Extremities: + femoral B - Labs Result Diagrams: 05/14/18 05:27 05/13/18 04:26 Troponin/CKMB CK-MB (CK-2) 1.3 ng/mL (0-6.6) 05/05/18 11:52 Troponin I 0.376 ng/mL (< 0.028) H* 05/05/18 18:13 - Assessment/Plan Marked CM, Non ischemic Moderate to severe AI Severe MR healed vegetation on AV (sterile) Pt with some diuresis overnight Remains on intermitternt bipap INcrease lasix Continue metolazone Plan is to transfer to a higher level of care for dispostion on AV, MV
[2018-05-14] MEDS ORDERED: Furosemide 40 MG/4 ML VIAL SLOW IVP SCH (06:00)
--- NOTE | 2018-05-15 10:31 | DIS ---
DATE OF ADMISSION: 05/05/2018 DATE OF DISCHARGE: 05/14/2018 PRIMARY CARE PHYSICIAN: Stevo Sadler MD REASON FOR ADMISSION: Shortness of breath and fatigue with acute hypoxic respiratory failure. DIAGNOSES AT DISCHARGE: 1. Acute hypoxic respiratory failure. 2. Acute systolic congestive heart failure, stage C. 3. Demand ischemia of myocardium. 4. Aortic valve vegetation, culture negative. 5. Left pleural effusion, culture negative. 6. Severe aortic and mitral valve regurgitation requiring valve replacement. 7. Macrocytic anemia. 8. Obesity. 9. Tobacco abuse. PROCEDURES: 1. CT of the chest and thorax with contrast showing a very large left-sided pleural effusion with compressive atelectasis of the lower left lobe, mild right-sided pleural effusion, and no evidence for pulmonary embolism. 2. Thoracentesis. 3. Cardiac catheterization showing insignificant coronary artery disease. There is some small vessel disease present. 4. Echocardiogram showing ejection fraction of 10% to 15%. Left ventricular dilatation, severe mitral regurgitation, [id number] aortic regurgitation, and vegetation present on the aortic valve measuring 2.5 mm. CONSULTATIONS: 1. Cardiology, Dr. Schuler. 2. Pulmonology, Dr. Aceves. 3. Infectious Disease, Dr. Coburn. PERTINENT LABORATORY DATA: Negative pleural fluid culture and negative blood culture x2. SUMMARY OF HOSPITAL COURSE: This is a 58-year-old white female presenting with progressive worsening shortness of breath over 3 months. She had been treated for walking pneumonia as an outpatient, but multiple courses of antibiotics without improvement. She did have persistent low-grade fevers and an outpatient CT did show a large left-sided pleural effusion. The patient was found to have O2 sats in the 70% on room air. She was given oxygen and then later BiPAP given IV antibiotics and admitted to the hospital. The patient had negative blood cultures and had thoracentesis with negative cultures in that. She had an echocardiogram showing severe congestive heart failure with aortic and mitral valve regurgitation and vegetation on the aortic valve. Dr. Coburn was consulted. The patient's antibiotics were adjusted. She had blood cultures that came back negative and pleural fluid culture also came back negative. At this point, there is no evidence of an actual infective endocarditis. The patient had to be treated with dobutamine for her congestive heart failure. She had persistent low blood pressures. Eventually, Dr. Schuler did a catheterization, which showed no coronary artery disease as a source of her CHF. At that point, it was determined that she needed valvular replacement of her aortic and mitral valves in order to improve her congestive heart failure. Dr. Schuler did talk to the doctor at [facility] and patient is being transferred there for higher level of care and valve failure treatment. DISCHARGE MANAGEMENT: Discharged to [facility] and to see the valve specialists there. Job ID: [id number]
--- NOTE | 2018-05-15 20:32 | EKG ---
Test Reason : Blood Pressure : / mmHG Vent. Rate : 138 BPM Atrial Rate : 138 BPM P-R Int : 130 ms QRS Dur : 094 ms QT Int : 328 ms P-R-T Axes : 014 010 -02 degrees QTc Int : 496 ms Sinus tachycardia with Premature supraventricular complexes Low voltage QRS Nonspecific ST and T wave abnormality Abnormal ECG Confirmed by SUHAS SANTORO, LOYD ([id number]), television news video editor YRIS KAUR ([id number]) on 05/15/2018 8:32:28 PM Referred By: Confirmed By:LOYD DAI MD
--- NOTE | 2018-05-15 20:32 | EKG ---
Test Reason : Blood Pressure : / mmHG Vent. Rate : 128 BPM Atrial Rate : 128 BPM P-R Int : 128 ms QRS Dur : 100 ms QT Int : 288 ms P-R-T Axes : 009 011 -01 degrees QTc Int : 420 ms Sinus tachycardia Low voltage QRS Nonspecific T wave abnormality Abnormal ECG Confirmed by LOYD DAI MD ([id number]), tape editor YRSI KAUR ([id number]) on 05/15/2018 8:32:29 PM Referred By: Confirmed By:LOYD DAI MD
[2018-05-17 12:12] LABS: Bartonella henselae IgG Negative titer (Neg:<1:320); Bartonella henselae IgM Negative titer (Neg:<1:100); Bartonella quintana IgG Negative titer (Neg:<1:320); Bartonella quintana IgM Negative titer (Neg:<1:100)
[2018-05-18 12:17] LABS: Brucella IgM Ab Positive (Negative)
== END 2018-05-14 08:41 | disposition short-term general hospital (02) | DRG 286 ==
LOC: ERS 11:28 → CCU 13:43 → IMCU/EMU 05-06 14:42
PROVIDERS: ADMIT Family Medicine; ATTEND Family Medicine
PROC: 5A09357 Assistance with Respiratory Ventilation, Less than 24 Consecutive Hours, Continuous Positive Airway Pressure (ICD-10-PCS; 2018-05-05)
PROC: 0W9B3ZZ Drainage of Left Pleural Cavity, Percutaneous Approach (ICD-10-PCS; 2018-05-05)
PROC: B2111ZZ Fluoroscopy of Multiple Coronary Arteries using Low Osmolar Contrast (ICD-10-PCS; principal; 2018-05-11)
DX: I50.21 Acute systolic (congestive) heart failure (principal); J96.01 Acute respiratory failure with hypoxia; I33.0 Acute and subacute infective endocarditis; I24.8 Other forms of acute ischemic heart disease; I08.0 Rheumatic disorders of both mitral and aortic valves; E03.9 Hypothyroidism, unspecified; E66.9 Obesity, unspecified; D53.9 Nutritional anemia, unspecified; J44.9 Chronic obstructive pulmonary disease, unspecified; F17.210 Nicotine dependence, cigarettes, uncomplicated; Z86.718 Personal history of other venous thrombosis and embolism; Z68.31 Body mass index [BMI] 31.0-31.9, adult
CPT/HCPCS: 36415; 71045; 71275; 80048; 80053; 80202; 82150; 82550; 82553; 82945; 83615; 83735; 83880; 83986; 84100; 84157; 84443; 84484; 85007; 85025; 85027; 85060; 85610; 85730; 86611; 86622; 87040; 87070; 87205; 88112; 88305; 89051; 93005; 93306; 93454; 93798; 94660; 94760; 96365; C1769; J0692; J1250; J1644; J1650; J1940; J2250; J2405; J3010; J3370; J3475; J7050; Q9966; Q9967

== ENCOUNTER 2019-01-01 05:09 | Emergency (ER) | payer BC ==
[2019-01-01 05:36] LABS: Hemoglobin 12.2 g/dL (12.0-16.0); Mean Corpuscular Hemoglobin 28.4 pg (27.0-31.0); Mean Corpuscular Volume 95.1 fL (78.0-98.0); Red Blood Cell (RBC) Count 4.28 mill/uL (4.20-5.40); White Blood Cell (WBC) Count 8.4 thou/uL (4.8-10.8)
[2019-01-01 05:59] LABS: ALT (SGPT) 12 U/L (8-55); AST (SGOT) 20 U/L (5-34); Albumin 3.8 g/dL (3.5-5.0); Alkaline Phosphatase 119 U/L (40-110); Anion Gap 11 mmol/L (10-20); BUN (Urea Nitrogen) 19 mg/dL (9.8-20.1); Bilirubin, Total 0.5 mg/dL (0.2-1.2); Calc. Creatinine Clearance 0 mL/min (70-130); Calcium 9.5 mg/dL (7.8-10.44); Carbon Dioxide 29 mmol/L (22-29); Chloride 100 mmol/L (98-107); Estimated GFR-MDRD 65; Globulin 3.5 g/dL (2.4-3.5); Glucose 84 mg/dL (70-105); Potassium 4.9 mmol/L (3.5-5.1); Protein, Total 7.3 g/dL (6.0-8.3); Sodium 135 mmol/L (136-145)
[2019-01-01 06:12] LABS: Anisocytosis SLIGHT = 6-15 cells (100X) (0-5/hpf); Band 1 % (5-11); Elliptocytes SLIGHT = 2-5 cells (100X) (0-1/hpf); Hypochromia SLIGHT = 6-15 cells (100X) (0-5/hpf); Lymphocytes 23 % (21-51); MDiff Complete? YES; Mean Corpuscular HGB CONC 29.9 g/dL (32.0-36.0); Mean Platelet Volume 7.4 fL (7.4-10.4); Monocytes 15 % (0-10); Neutrophil 61 % (42-75); Nucleated RBC 1 % (0); Platelet Count 338 thou/uL (130-400); Platelet Morphology Comment Appears Adequate; Poikilocytosis SLIGHT = 6-15 cells (100X) (0-5/hpf); Polychromasia SLIGHT = 2-3 cells (100X) (0-2/hpf); RBC Distribution Width 19.1 % (11.5-14.5)
--- NOTE | 2019-01-01 08:49 | RAD ---
PORTABLE CHEST 1 VIEW: Date: 01/01/19 Time: 0512 hours HISTORY: Right leg weakness, altered mental status. FINDINGS/IMPRESSION: Comparison made with exam of 05/12/18. There are changes of median sternotomy. The heart is enlarged. No pneumothoraces or ariana pulmonary e fannie seen. There is opacity in the left lower hemithorax. POS: [facility]
== END 2019-01-01 09:04 | disposition short-term general hospital (02) ==
LOC: ERS 05:09
DX: E86.0 Dehydration (principal); E03.9 Hypothyroidism, unspecified; F41.9 Anxiety disorder, unspecified; F17.210 Nicotine dependence, cigarettes, uncomplicated; Z79.899 Other long term (current) drug therapy; Z79.01 Long term (current) use of anticoagulants; Z79.82 Long term (current) use of aspirin
CPT/HCPCS: 36415; 71045; 80053; 85025; 96360

== ENCOUNTER 2019-01-29 16:33 | Emergency (ER) | payer BC ==
--- NOTE | 2019-01-29 17:23 | CT ---
CT Brain WO Con History: Altered mental status Comparison: CT brain 2005 Findings: Left occipital encephalomalacia. Subtle loss of normal cabrera-white matter attenuation of the left superior frontal gyrus and subcortical cabrera matter. No acute hemorrhage. No midline shift or mass effect. Calvarium is intact. Paranasal sinuses and mastoids are clear. Impression: 1. Loss of cabrera-white matter differentiation of the left superior frontal gyrus may reflect a late ac marisol versus early subacute infarction. 2. 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
[2019-01-29 17:44] LABS: Bacteria/HPF 4+ HPF (None Seen); Bilirubin Negative (Negative); Blood, Urine Negative (Negative); Clarity Clear (Clear); Glucose, Urine (Dipstick) Normal (Negative); Leukocyte 500 Leu/uL (Negative); Nitrite Negative (Negative); Protein, Urine (Dipstick) Negative (Neg-Trace); RBC/HPF 0-3 HPF (0-3); Squamous Epithelial 0-3 HPF (0-3); Urobilinogen Normal mg/dL (Less than 2)
[2019-01-29 18:02] LABS: #Eosinphils 0.1 thou/uL (0.0-0.7); #Lymphocytes 1.9 thou/uL (1.20-3.40); #Monocytes 0.8 thou/uL (0.11-0.59); #Neutrophils 5.2 thou/uL (1.40-6.50); %Basophils 0.6 % (0.0-1.0); %Eosinophils 1.6 % (0.0-10.0); %Lymphocytes 23.6 % (21.0-51.0); %Monocytes 9.5 % (0.0-10.0); %Neutrophils 64.8 % (42.0-75.0); Hemoglobin 10.5 g/dL (12.0-16.0); Mean Corpuscular HGB CONC 30.7 g/dL (32.0-36.0); Mean Corpuscular Volume 94.6 fL (78.0-98.0); Mean Platelet Volume 7.3 fL (7.4-10.4); Platelet Count 259 thou/uL (130-400); RBC Distribution Width 19.6 % (11.5-14.5); Red Blood Cell (RBC) Count 3.61 mill/uL (4.20-5.40); White Blood Cell (WBC) Count 8.1 thou/uL (4.8-10.8)
[2019-01-29 18:10] LABS: PTT 51.2 SEC (22.9-36.1)
--- NOTE | 2019-01-29 18:20 | RAD ---
XR Chest 1 View Portable History: Fall Comparison: Radiograph January 01, 2019 Findings: Heart size markedly enlarged with a left ventricular assist device. Mild pulmonary venous c ongestion. No pneumothorax. No acute osseous abnormality. Impression: 1. Mild pulmonary venous congestion and early edema. 2. Markedly cardiomegaly with similar appearance of the left ventricular assist device.
--- NOTE | 2019-01-29 18:20 | RAD ---
XR Ankle Rt 3 View STANDARD History: Fall Comparison: None. Findings: Bones are extensively demineralized. No acute displaced fracture or malalignment. There is sclerosis in the posterior process of the calcaneus. Impression: 1. No acute displaced fracture or malalignment. 2. Sclerosis of the posterior process of the calcaneus could be stress related.
[2019-01-29 18:28] LABS: ALT (SGPT) 13 U/L (8-55); AST (SGOT) 22 U/L (5-34); Albumin 3.8 g/dL (3.5-5.0); Alkaline Phosphatase 93 U/L (40-110); Anion Gap 12 mmol/L (10-20); BUN (Urea Nitrogen) 32 mg/dL (9.8-20.1); Bilirubin, Total 0.3 mg/dL (0.2-1.2); Calc. Creatinine Clearance 0 mL/min (70-130); Calcium 9.1 mg/dL (7.8-10.44); Carbon Dioxide 30 mmol/L (22-29); Chloride 106 mmol/L (98-107); Estimated GFR-MDRD 63; Globulin 3.2 g/dL (2.4-3.5); Glucose 88 mg/dL (70-105); Lipase 6 U/L (8-78); Magnesium 2.1 mg/dL (1.6-2.6); Potassium 5.6 mmol/L (3.5-5.1); Sodium 142 mmol/L (136-145)
[2019-01-29 18:47] LABS: CKMB 2.7 ng/mL (0-6.6)
[2019-01-29] MEDS ORDERED: Cefepime 2 GM VIAL ONE (18:53)
[2019-01-29] MEDS ORDERED: Aspirin Chewable 81 MG TAB ONE (18:53)
== END 2019-01-29 20:38 | disposition short-term general hospital (02) ==
LOC: ERS 16:33
DX: I63.9 Cerebral infarction, unspecified (principal); N39.0 Urinary tract infection, site not specified; R79.89 Other specified abnormal findings of blood chemistry; E03.9 Hypothyroidism, unspecified; F41.9 Anxiety disorder, unspecified; F17.210 Nicotine dependence, cigarettes, uncomplicated; Z79.899 Other long term (current) drug therapy; Z79.01 Long term (current) use of anticoagulants
CPT/HCPCS: 36415; 51701; 70450; 71045; 80053; 81003; 81015; 82553; 83605; 83690; 83735; 84484; 85025; 85610; 85730; 87040; 87077; 87086; 87186; 93005; 96365; A4353; J0692

== ENCOUNTER 2019-03-14 05:03 | Emergency (ER) | payer BC ==
[2019-03-14 06:04] LABS: #Basophils 0.1 thou/uL (0.0-0.2); #Monocytes 0.4 thou/uL (0.11-0.59); #Neutrophils 6.9 thou/uL (1.40-6.50); %Basophils 0.6 % (0.0-1.0); %Eosinophils 0.4 % (0.0-10.0); %Lymphocytes 11.7 % (21.0-51.0); %Monocytes 4.6 % (0.0-10.0); %Neutrophils 82.7 % (42.0-75.0); Hemoglobin 9.4 g/dL (12.0-16.0); Mean Corpuscular HGB CONC 31.4 g/dL (32.0-36.0); Mean Corpuscular Hemoglobin 29.6 pg (27.0-31.0); Mean Corpuscular Volume 94.2 fL (78.0-98.0); Mean Platelet Volume 6.8 fL (7.4-10.4); Platelet Count 429 thou/uL (130-400); RBC Distribution Width 17.9 % (11.5-14.5); Red Blood Cell (RBC) Count 3.17 mill/uL (4.20-5.40); White Blood Cell (WBC) Count 8.3 thou/uL (4.8-10.8)
[2019-03-14 06:12] LABS: INR-International Normal Ratio 2.4; PTT 47.9 SEC (22.9-36.1); Prothrombin Time 25.9 SEC (12.0-14.7)
[2019-03-14 06:31] LABS: ALT (SGPT) 8 U/L (8-55); AST (SGOT) 14 U/L (5-34); Albumin 3.8 g/dL (3.5-5.0); Alkaline Phosphatase 97 U/L (40-110); Anion Gap 18 mmol/L (10-20); BUN (Urea Nitrogen) 67 mg/dL (9.8-20.1); Bilirubin, Total 0.3 mg/dL (0.2-1.2); Calc. Creatinine Clearance 0 mL/min (70-130); Carbon Dioxide 24 mmol/L (22-29); Chloride 98 mmol/L (98-107); Estimated GFR-MDRD 29; Globulin 3.2 g/dL (2.4-3.5); Glucose 118 mg/dL (70-105); Potassium 5.5 mmol/L (3.5-5.1); Sodium 134 mmol/L (136-145)
[2019-03-14 07:00] LABS: Bilirubin Negative (Negative); Blood, Urine Negative (Negative); Clarity Clear (Clear); Glucose, Urine (Dipstick) Normal (Negative); Leukocyte Negative Leu/uL (Negative); Nitrite Negative (Negative); Protein, Urine (Dipstick) Negative (Neg-Trace); Urobilinogen Normal mg/dL (Less than 2)
--- NOTE | 2019-03-14 07:56 | CT ---
PRELIMINARY REPORT/[facility]/EMERGENCY AFTER HOURS PROCEDURE: EXAM: CT Head Without Intravenous Contrast. CLINICAL HISTORY: PRIOR STUDY...ER 5...F58 presents to ED by EMS for disorientation, has had LVAD x1 yr. Pt's c alled EMS after x12 hrs of disorientation, reports pt is repeating same questions every 15 mins. Pt i s unsure of what exactly occurred over the last 12 hours, denies any pain or any other complaints. Pt 's doctors are in [place] at [facility] [place]. TECHNIQUE: Axial computed tomography images of the head/brain without intravenous contrast. COMPARISON: None provided. FINDINGS: BRAIN: No acute intraparenchymal hemorrhage. No mass lesion. No CT evidence for acute territorial inf arct. No midline shift or extra-axial collection. Chronic encephalomalacia of the left occipital lobe. VENTRICLES: No hydrocephalus. Volume loss. ORBITS: The orbits are unremarkable. SINUSES AND MASTOIDS: The paranasal sinuses and mastoid air cells are clear. SOFT TISSUES: No significant facial or scalp soft tissue swelling evident. No radiopaque foreign body is seen. BONES: No acute skull fracture. IMPRESSION: No acute intracranial abnormality. Chronic encephalomalacia of the left occipital lobe. 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 If you recei ve this report in error, please call [facility] at [phone]. FINAL REPORT HEAD CT WITHOUT CONTRAST: COMPARISON: 01/29/2019. HISTORY: Altered mental status. Disoriented patient. FINDINGS: Stable focus of encephalomalacia in the medial left occipitoparietal region. Remainder of the cerebru m demonstrates preservation of cortical cabrera-white matter differentiation. Intact calvarium. Adequate aeration of sinuses and mastoid air cells. No hydrocephalus. IMPRESSION: This report is in agreement with the initial report by [facility]. No acute intracranial proces s. POS: [facility]
--- NOTE | 2019-03-14 08:25 | RAD ---
SINGLE VIEW OF THE CHEST: COMPARISON: 01/29/2019 and CTA chest 05/05/2018. HISTORY: Altered mental status. FINDINGS: A single view of the chest shows an enlarged cardiomediastinal silhouette. The patient is status pos t sternotomy for aortic valve replacement. There is a moderate left pleural effusion with adjacent a telectasis. IMPRESSION: 1. Cardiomegaly. 2. Left pleural effusion with adjacent atelectasis. POS: [facility]
== END 2019-03-14 09:17 | disposition short-term general hospital (02) ==
LOC: ERS 05:03
DX: N18.6 End stage renal disease (principal); E03.9 Hypothyroidism, unspecified; F32.9 Major depressive disorder, single episode, unspecified; Z79.82 Long term (current) use of aspirin; Z79.899 Other long term (current) drug therapy; Z79.01 Long term (current) use of anticoagulants
CPT/HCPCS: 36415; 51701; 70450; 71045; 80053; 81003; 83880; 84484; 85025; 85610; 85730; 93005; 96360; 96361; A4353

== ENCOUNTER 2019-04-06 13:14 | Emergency (ER) | payer BC ==
[2019-04-06] MEDS ORDERED: Morphine 4 MG/ML VIAL ONE (14:07)
[2019-04-06] MEDS ORDERED: Ondansetron PF 4 MG/2 ML Vial ONE (14:07)
[2019-04-06 14:27] LABS: #Basophils 0.1 thou/uL (0.0-0.2); #Eosinphils 0.1 thou/uL (0.0-0.7); #Lymphocytes 1.6 thou/uL (1.20-3.40); #Monocytes 0.6 thou/uL (0.11-0.59); #Neutrophils 4.2 thou/uL (1.40-6.50); %Eosinophils 1.3 % (0.0-10.0); %Lymphocytes 24.1 % (21.0-51.0); %Monocytes 9.7 % (0.0-10.0); Hemoglobin 11.2 g/dL (12.0-16.0); Mean Corpuscular HGB CONC 30.6 g/dL (32.0-36.0); Mean Corpuscular Hemoglobin 28.8 pg (27.0-31.0); Mean Platelet Volume 7.9 fL (7.4-10.4); Platelet Count 326 thou/uL (130-400); RBC Distribution Width 17.6 % (11.5-14.5); Red Blood Cell (RBC) Count 3.88 mill/uL (4.20-5.40); White Blood Cell (WBC) Count 6.6 thou/uL (4.8-10.8)
[2019-04-06 14:34] LABS: INR-International Normal Ratio 2.5; PTT 48.2 SEC (22.9-36.1); Prothrombin Time 26.7 SEC (12.0-14.7)
--- NOTE | 2019-04-06 14:41 | CT ---
EXAM: CT of the lumbar spine without contrast HISTORY: Low back pain after feeling a pop in her spine when getting up from the toilet COMPARISON: None TECHNIQUE: Multiple contiguous axial images were obtained in a CT of the lumbar spine without contras t. Sagittal and coronal reformats were performed. FINDINGS: There is subtle compression of the superior endplate of L5 vertebral body which appears acu te. No other fractures are seen. The vertebral bodies demonstrate normal alignment without subluxation. . No degenerative changes are present. Atherosclerotic calcifications are seen in the aorta. The other prevertebral and paraspinal soft ti ssues are unremarkable. IMPRESSION: Acute compression fracture of the superior endplate of L5 vertebral body.
--- NOTE | 2019-04-06 14:43 | CT ---
EXAM: CT of the thoracic spine without contrast HISTORY: Back pain after getting up from the toilet. COMPARISON: None TECHNIQUE: Multiple contiguous axial images were obtained in a CT of the thoracic spine without contr ast. Sagittal and coronal reformats were performed. FINDINGS: The vertebral bodies and intervertebral discs demonstrate normal height and alignment witho ut fracture or subluxation. . Moderate degenerative changes are seen throughout the thoracic spine. Trace bilateral pleural effusions are seen. Atelectasis is seen in both lungs. The other prevertebra l and paraspinal soft tissues are unremarkable. IMPRESSION: No evidence of acute osseous abnormality of the thoracic spine.
[2019-04-06 14:50] LABS: ALT (SGPT) 23 U/L (8-55); AST (SGOT) 32 U/L (5-34); Alkaline Phosphatase 106 U/L (40-110); Anion Gap 11 mmol/L (10-20); BUN (Urea Nitrogen) 46 mg/dL (9.8-20.1); Bilirubin, Total 0.4 mg/dL (0.2-1.2); Calc. Creatinine Clearance 0 mL/min (70-130); Calcium 9.4 mg/dL (7.8-10.44); Carbon Dioxide 36 mmol/L (22-29); Chloride 97 mmol/L (98-107); Estimated GFR-MDRD 41; Glucose 92 mg/dL (70-105); Potassium 4.7 mmol/L (3.5-5.1); Sodium 139 mmol/L (136-145)
[2019-04-06] MEDS ORDERED: Morphine 10 MG/ML VIAL ONE (23:26)
== END 2019-04-06 23:39 | disposition short-term general hospital (02) ==
LOC: ERS 13:14
DX: S32.059A Unspecified fracture of fifth lumbar vertebra, initial encounter for closed fracture (principal); R53.1 Weakness; I48.91 Unspecified atrial fibrillation; D64.9 Anemia, unspecified; E03.9 Hypothyroidism, unspecified; F32.9 Major depressive disorder, single episode, unspecified; Z87.891 Personal history of nicotine dependence; Z79.899 Other long term (current) drug therapy; Z79.1 Long term (current) use of non-steroidal anti-inflammatories (NSAID); Z79.82 Long term (current) use of aspirin; Z79.01 Long term (current) use of anticoagulants; X50.1XXA Overexertion from prolonged static or awkward postures, initial encounter
CPT/HCPCS: 72128; 72131; 80053; 85025; 85610; 85730; 93005; 96361; 96374; 96375; 96376; J2270; J2405